=== PATIENT | male | born 1995 | race Caucasian/White ===

== ENCOUNTER 2020-09-07 11:49 | Outpatient (REF) | payer OTHER, SELFPAY | END 2020-09-07 11:50 | disposition home or self-care (01) | LOC: HO.LAB 11:49 | PROVIDERS: Visit Provider Internal Medicine | DX: Z20.828 Contact with and (suspected) exposure to other viral communicable diseases (principal) | CPT/HCPCS: C9803; U0003 ==

== ENCOUNTER 2022-05-10 11:17 | Outpatient (REF) | payer OTHER, SELFPAY ==
[2022-05-10 11:30] LABS: MANUAL DIFF FLAG NO
[2022-05-10 12:17] LABS: Basophils Percent Auto 0.4 % (0-2); Eosinophils Absolute Auto 0.2 X10*3/uL (0.0-0.4); Eosinophils Percent Auto 3.1 % (0-4); Hematocrit 44.3 % (42.0-52.0); Hemoglobin 15.3 g/dl (14.0-18.0); Imm Gran Abs Auto 0.04 X10*3/uL (0.00-0.03); Imm Gran Pct Auto 0.6 % (0.0-0.4); Lymphocytes Absolute Auto 1.9 X10*3/uL (1.2-4.9); Lymphocytes Percent Auto 26.9 % (20-40); Mean Corpuscular HGB Conc 34.5 g/dl (31.0-36.0); Mean Corpuscular Hemoglobin 29.7 pg (27.0-33.0); Mean Corpuscular Volume 85.9 fL (80.0-98.0); Mean Platelet Volume 11.2 fL (9.4-12.4); Monocytes Absolute Auto 0.4 X10*3/uL (0.1-1.2); Monocytes Percent Auto 5.8 % (2-11); Neutrophils Absolute Auto 4.3 x10*3/uL (2.0-8.3); Neutrophils Percent Auto 63.2 % (45-73); Platelet Count 175 X10*3/uL (160-400); Red Blood Count 5.16 X10*6/uL (4.60-5.80); Red Cell Distribution Width 12.1 % (11.0-16.0); White Blood Count 6.9 X10*3/uL (4.8-10.8)
[2022-05-10 12:44] LABS: Anion Gap 13 (12-20); Blood Urea Nitrogen 11 mg/dL (9-16); Calcium 10.2 mg/dL (8.4-10.2); Carbon Dioxide 29 mmol/L (22-29); Chloride 102 mmol/L (96-108); Estimated Glomerular Filt Rate > 60; Glucose Random 84 mg/dL (60-115); Sodium 139 mmol/L (135-145)
== END 2022-05-10 11:18 | disposition home or self-care (01) ==
LOC: HO.LAB 11:17
PROVIDERS: PCP Internal Medicine; Visit Provider Internal Medicine
DX: R51.9 Headache, unspecified (principal); Z13.0 Encounter for screening for diseases of the blood and blood-forming organs and certain disorders involving the immune mechanism
CPT/HCPCS: 36415; 80048; 85025

== ENCOUNTER 2023-10-29 05:29 | Emergency (ER) | payer MEDICAID, SELFPAY ==
--- NOTE | 2023-10-29 | ECG_ITS ---
Test Reason : dizziness Blood Pressure : / mmHG Vent. Rate : 082 BPM Atrial Rate : 082 BPM P-R Int : 134 ms QRS Dur : 088 ms QT Int : 374 ms P-R-T Axes : 032 021 020 degrees QTc Int : 436 ms Normal sinus rhythm Nonspecific T wave abnormality Abnormal ECG When compared with ECG of 03-DEC-2019 08:28, Nonspecific T wave abnormality now evident in Anterior leads Referred By: Generic ED Physician Electronically Signed By:MARLEN HENDERSON MD
[2023-10-29 05:33] VITALS: BP 152/70; PULSE 92; RESP 16; TEMP 36.6; O2SAT 97; BMI 27.4
[2023-10-29 06:03] LABS: Basophils Percent Auto 0.3 % (0-2); Eosinophils Absolute Auto 0.1 X10*3/uL (0.0-0.4); Eosinophils Percent Auto 1.4 % (0-4); Hematocrit 40.5 % (42.0-52.0); Hemoglobin 13.8 g/dl (14.0-18.0); Imm Gran Abs Auto 0.03 X10*3/uL (0.00-0.03); Imm Gran Pct Auto 0.5 % (0.0-0.4); Lymphocytes Percent Auto 31.3 % (20-40); MANUAL DIFF FLAG NO; Mean Corpuscular HGB Conc 34.1 g/dl (31.0-36.0); Mean Corpuscular Hemoglobin 29.4 pg (27.0-33.0); Mean Corpuscular Volume 86.2 fL (80.0-98.0); Mean Platelet Volume 10.4 fL (9.4-12.4); Monocytes Absolute Auto 0.4 X10*3/uL (0.1-1.2); Monocytes Percent Auto 6.2 % (2-11); Neutrophils Absolute Auto 3.8 x10*3/uL (2.0-8.3); Neutrophils Percent Auto 60.3 % (45-73); Platelet Count 175 X10*3/uL (160-400); Red Cell Distribution Width 12.5 % (11.0-16.0); White Blood Count 6.3 X10*3/uL (4.8-10.8)
[2023-10-29 06:17] LABS: Alanine Aminotransferase 99 U/L (0-40); Albumin Level 4.5 g/dL (3.5-5.0); Alkaline Phosphatase 85 U/L (39-117); Anion Gap 17 (12-20); Aspartate Amino Transferase 34 U/L (5-37); Bilirubin Total 0.4 mg/dL (0.0-1.0); Blood Urea Nitrogen 13 mg/dL (9-16); Calcium 9.5 mg/dL (8.4-10.2); Carbon Dioxide 25 mmol/L (22-29); Chloride 106 mmol/L (96-108); Creatinine Clr Calc Pharmacy 105.6; Estimated Glomerular Filt Rate > 60; Glucose Random 111 mg/dL (60-115); Potassium 3.9 mmol/L (3.3-5.1); Sodium 144 mmol/L (135-145); Total Protein 7.6 g/dL (6.5-8.0)
[2023-10-29 06:51] LABS: Appearance Urine Clear; Color Urine Yellow; Glucose Urine UA Negative (Negative); Leukocyte Esterase Urine Negative (Negative); Nitrite Urine Negative (Negative); Specific Gravity - Urine 1.025 (1.005-1.025); Urine Blood Negative (Negative); Urine Ketones Negative (Negative); Urine Protein Negative (Neg-Trace)
[2023-10-29 06:56] LABS: Bacteria Urine None Seen (None Seen); Hyaline Casts Urine 0-2 /LPF (0-2); RBC Urine 0-2 /HPF (0-2); Squamous Epithelial Cell Urine 0-2 /HPF (0-2); WBC Urine 0-5 /HPF (0-5)
--- NOTE | 2023-10-29 08:07 | ED.DIZZY ---
HPI - Dizziness General Chief Complaint: Dizziness Stated Complaint: Dizziness Time Seen by Provider: 10/29/23 07:58 Source: patient Mode of arrival: ambulatory Limitations: no limitations History of Present Illness HPI Narrative: Patient with a prior history of vertigo, now is dizzy again starting yesterday, worse with positional changes Pertinent past history: BPPV Onset (ago): day(s) Timing: sudden onset Severity: moderate Description: room spinning Related Data Previous Rx's Medication Instructions Recorded meclizine 25 mg tablet 25 mg PO TID PRN dizziness #30 tabs 10/29/23 Allergies Allergy/AdvReac Type Severity Reaction Status Date / Time No Known Allergies Allergy Verified 10/29/23 05:42 [No Known Allergies*] Review of Systems Review of Systems: Yes all other systems are reviewed and are negative Neurologic: Denies Sensory deficit (Neuro) COUNTS INCLUDE 234 BEDS AT THE [facility] Social History Social History Patient Tobacco Use Status: Never used Tobacco e-Cigarette/Vaping Use: Never Used Advance Directives: No Advance Directives Information Provided: No Current occupational status: employed Physical Exam Vital Signs: Vital Signs: Last Vital Signs Temp 97.9 F 10/29/23 05:33 Pulse 92 10/29/23 05:33 Resp 16 10/29/23 05:33 BP 152/70 H 10/29/23 05:33 Pulse Ox 97 10/29/23 05:33 O2 Del Method Room Air 10/29/23 05:33 BMI result Body Mass Index 27.4 Const: General: healthy appearing Nutritional Appearance: average body habitus Orientation/consciousness: oriented to person and patient oriented x3 Limitations: no limitations HEENT: Other: Nystagmus on right lateral gaze. Tms normal Head: Yes normal to inspection Ears: external ears normal and TM's normal bilaterally General nose exam: Normal external nose present Mouth: Normal oral and palatal mucosa present and oropharynx normal Throat: Yes posterior oropharynx normal Eyes: General: appearance normal, both eyes and all related structures Neck: Other: supple Neck: Yes normal visual inspection Chest: Chest palpation & inspection: normal inspection of the chest Resp: Auscultation: clear to auscultation bilaterally Cardio: Jugular venous distension: no JVD Rate: regular rate Rhythm: regular rhythm Heart sounds: S1 normal heart sound present and S2 normal heart sound present GI: Inspection: Yes normal to inspection Palpation (GI): Soft to palpation, nontender and No hepatosplenomegaly present Auscultation: normal bowel sounds : General: Yes no CVA tenderness Back/Spine/Pelvis: Back: no CVA tenderness Skin: General skin exam: no rashes or lesions noted Neuro: General: oriented to person and patient oriented x3 Cranial nerves: Yes CN's II-XII intact bilaterally Motor exam (neuro): 5/5 motor strength present throughout Sensory Exam: No Sensory deficit (Neuro) Extrem: General: Yes normal to inspection Psych: Appearance: grossly normal Course Reevaluation(s) Reevaluation #1: will treat patient with meclizine and dc home Time: 08:09 Medical Decision Making Differential Diagnosis Differential Diagnoses: The differential diagnosis associated with the presentation includes (vertigo, hypotension, hypertension, brain mass, otitis media) Admission/Observation Consideration of admission/observation: Escalation of care including admission/observation considered (upon arrival patient was considered for admission) Lab Data 10/29/23 05:58 10/29/23 05:58 Labs: Lab Results 10/29/23 10/29/23 Range/Units 05:58 06:35 WBC 6.3 (4.8-10.8) X10*3/uL RBC 4.70 (4.60-5.80) X10*6/uL Hgb 13.8 L (14.0-18.0) g/dl Hct 40.5 L (42.0-52.0) % MCV 86.2 (80.0-98.0) fL MCH 29.4 (27.0-33.0) pg MCHC 34.1 (31.0-36.0) g/dl RDW 12.5 (11.0-16.0) % Plt Count 175 (160-400) X10*3/uL MPV 10.4 (9.4-12.4) fL Immature Gran % (Auto) 0.5 H (0.0-0.4) % Neut % (Auto) 60.3 (45-73) % Lymph % (Auto) 31.3 (20-40) % [place] % (Auto) 6.2 (2-11) % Eos % (Auto) 1.4 (0-4) % Baso % (Auto) 0.3 (0-2) % Lymph # (Auto) 2.0 (1.2-4.9) X10*3/uL [place] # (Auto) 0.4 (0.1-1.2) X10*3/uL Eos # (Auto) 0.1 (0.0-0.4) X10*3/uL Baso # (Auto) 0.0 (0.0-0.2) X10*3/uL Abs Immat Gran (auto) 0.03 (0.00-0.03) X10*3/uL Absolute Neuts (auto) 3.8 (2.0-8.3) x10*3/uL Absolute Nucleated RBC 0.000 (0.0-0.012) X10*3/uL Nucleated RBC % (auto) 0.0 (0.0-0.2) /100WBC Sodium 144 (135-145) mmol/L Potassium 3.9 (3.3-5.1) mmol/L Chloride 106 (96-108) mmol/L Carbon Dioxide 25 (22-29) mmol/L Anion Gap 17 (12-20) BUN 13 (9-16) mg/dL Creatinine 1.00 (0.5-1.4) mg/dL Estim Creat Clear Calc 105.6 Estimated GFR > 60 Random Glucose 111 (60-115) mg/dL Calcium 9.5 D (8.4-10.2) mg/dL Total Bilirubin 0.4 (0.0-1.0) mg/dL AST 34 (5-37) U/L ALT 99 H (0-40) U/L Alkaline Phosphatase 85 (39-117) U/L Total Protein 7.6 (6.5-8.0) g/dL Albumin 4.5 (3.5-5.0) g/dL Urine Color Yellow Urine Appearance Clear Urine pH 6.0 (5.0-9.0) Ur Specific [place] 1.025 (1.005-1.025) Urine Protein Negative (Neg-Trace) mg/dL Urine Glucose (UA) Negative (Negative) mg/dL Urine Ketones Negative (Negative) mg/dL Urine Blood Negative (Negative) Urine Nitrite Negative (Negative) Ur Leukocyte Esterase Negative (Negative) Urine RBC 0-2 (0-2) /HPF Urine WBC 0-5 (0-5) /HPF Ur Squamous Epith Cells 0-2 (0-2) /HPF Urine Bacteria None Seen (None Seen) Hyaline Casts 0-2 (0-2) /LPF Independent Interpretation I performed an independent interpretation of an: EKG (sinus [address] or twave changes) Tests considered The following testing was considered but not selected: CT of brain considered, patient with prior history of vertigo Prescription Management I considered prescription management with: Antibiotic (no otitis media seen) Discharge Plan Discharge Clinical Impression: Dizziness, Benign paroxysmal positional vertigo Patient Disposition: Home, Self-Care Instructions: Benign Paroxysmal Positional Vertigo (ED) Prescriptions: New meclizine 25 mg tablet 25 mg PO TID PRN (Reason: dizziness) Qty: 30 0RF Referrals: Syed Smith [Physician] - 1 week Stand Alone Forms: Work/School Release
[2023-10-29] MEDS: Meclizine HCl 25 MG TABLET 50 MG PO (08:33)
[2023-10-29 08:50] VITALS: RESP 18
== END 2023-10-29 08:54 | disposition home or self-care (01) ==
PROVIDERS: Emergency Provider Emergency Medicine
DX: H81.10 Benign paroxysmal vertigo, unspecified ear (principal)
CPT/HCPCS: 36415; 80053; 81001; 85025; 93005; 99283; 99284

== ENCOUNTER → 2023-10-29 05:53 | Outpatient (BNV) | payer MEDICAID, SELFPAY | PROVIDERS: Emergency Provider Emergency Medicine; Visit Provider Internal Medicine Cardiovascular Disease | DX: R94.31 Abnormal electrocardiogram [ECG] [EKG] (principal) | CPT/HCPCS: 93010 ==

== ENCOUNTER 2023-11-05 08:29 | Emergency (ER) | payer OTHER, SELFPAY ==
[2023-11-05 08:44] VITALS: BP 142/80; PULSE 78; RESP 18; TEMP 35.9; O2SAT 97; BMI 27.4
--- NOTE | 2023-11-05 09:07 | PC.NURSE ---
This RN had an extensive conversation with patient in triage in regards to last hospital stay, current symptoms, and what the plan of care would be today, pt verbalized he did not want to wait to be seen, that his symptoms had not changed since last visit, he was going to call his PCP again to attempt to get a sooner appointment. Pt verbalized understanding of leaving without being seen today.
== END 2023-11-05 09:11 | disposition left against medical advice (07) ==
PROVIDERS: Emergency Provider Emergency Medicine
DX: R42 Dizziness and giddiness (principal)
CPT/HCPCS: 99281

== ENCOUNTER 2024-09-09 03:45 | Emergency (ER) | payer OTHER, SELFPAY ==
--- NOTE | 2024-09-09 | ECG_ITS ---
Test Reason : CHEST PAIN Blood Pressure : / mmHG Vent. Rate : 076 BPM Atrial Rate : 076 BPM P-R Int : 128 ms QRS Dur : 092 ms QT Int : 374 ms P-R-T Axes : 020 020 009 degrees QTc Int : 420 ms Normal sinus rhythm Normal ECG When compared with ECG of 29-OCT-2023 05:53, No significant change was found Referred By: Generic ED Physician Electronically Signed By:MARLEN HENDERSON MD
--- NOTE | ~2024-09-09 | CT_ITS ---
EXAMINATION: CT ABDOMEN AND PELVIS WITH CONTRAST CLINICAL INFORMATION: Abdominal pain. Vomiting. Elevated lipase. COMPARISON: CT dated March 23, 2020. TECHNIQUE: Multidetector volumetric images were obtained from the superior aspect of the liver through the pubic symphysis following administration 85 mL of Omnipaque 350 intravenous contrast. Sagittal and coronal reformatted images were obtained on the technologist's workstation. Oral contrast: No This CT examination was performed using dose optimization techniques as appropriate, variously including the following: *Automated exposure control *Adjustment of mA and/or kV according to patient size (this includes techniques or standardized protocols for targeted exams where dose is matched to indication/reason for exam; i.e. extremities or head) *Use of iterative reconstruction technique DLP: 595 mGy-cm FINDINGS: LUNG BASES: No acute airspace disease or gross pulmonary nodules in the included lung bases. LIVER, GALLBLADDER, AND BILIARY TREE: Liver measures 16 cm. No focal mass. Focal hypodensity adjacent to the falciform ligament likely focal fatty infiltration. Portal vein, hepatic veins and intrahepatic portion of the IVC are patent. No intrahepatic or extrahepatic biliary ductal dilatation. Fluid-filled contracted gallbladder without pericholecystic fluid collection or gallbladder wall thickening. PANCREAS: No focal pancreatic mass. No peripancreatic fluid collection. No main pancreatic ductal dilatation. SPLEEN: 12 cm. No focal mass. ADRENAL GLANDS: No nodular lesion. KIDNEYS AND URETERS: Normal enhancement pattern throughout the renal parenchyma without gross renal mass. Subcentimeter cyst right kidney. No hydronephrosis. BLADDER: Fluid-filled. GASTROINTESTINAL TRACT: Appendix is normal and retrocecal. Abundant stool large intestine. No intestinal obstruction pattern. No pneumatosis intestinalis. No pneumoperitoneum. No ascites. No peripheral enhancing fluid collection, peritoneal cavity. ABDOMINAL WALL: Small fat-containing umbilical hernia. LYMPH NODES: Nonspecific prominent mesenteric lymph nodes with associated mesenteric edema pattern. VASCULAR: No aneurysm or dissection, abdominal aorta. PELVIC VISCERA: Prostate gland and seminal vesicles are not enlarged. OSSEOUS STRUCTURES: No acute fracture or listhesis. No lytic or blastic lesions. CT/CT abdomen pelvis w IV con IMPRESSION: Splenomegaly. Nonspecific prominent mesenteric lymph nodes and edema pattern. Fleischner guidelines were followed. Electronically signed by: Nahum Murry MD 09/09/2024 09:52 AM EST
--- NOTE | ~2024-09-09 | XR_ITS ---
EXAMINATION: XR CHEST CLINICAL INFORMATION: sob COMPARISON: None available. TECHNIQUE: 2 views of the chest were obtained. FINDINGS: No consolidation, pleural effusion or pneumothorax. No hyperinflation. Cardiomediastinal silhouette is normal in size. S-shaped curvature of the thoracolumbar junction. XR/XR chest 2V IMPRESSION: No acute airspace disease. Probable scoliosis, thoracolumbar spine. Electronically signed by: Nahum Murry MD 09/09/2024 07:48 AM EST
[2024-09-09 03:48] VITALS: BP 122/72; PULSE 73; RESP 16; TEMP 36.8; O2SAT 97; BMI 29.0
[2024-09-09 04:44] LABS: MANUAL DIFF FLAG NO
[2024-09-09 04:45] LABS: Basophils Percent Auto 0.4 % (0-2); Eosinophils Absolute Auto 0.1 X10*3/uL (0.0-0.4); Eosinophils Percent Auto 2.1 % (0-4); Hematocrit 39.5 % (42.0-52.0); Hemoglobin 13.7 g/dl (14.0-18.0); Imm Gran Abs Auto 0.01 X10*3/uL (0.00-0.03); Imm Gran Pct Auto 0.2 % (0.0-0.4); Lymphocytes Absolute Auto 1.5 X10*3/uL (1.2-4.9); Lymphocytes Percent Auto 26.5 % (20-40); Mean Corpuscular HGB Conc 34.7 g/dl (31.0-36.0); Mean Corpuscular Hemoglobin 29.8 pg (27.0-33.0); Mean Corpuscular Volume 85.9 fL (80.0-98.0); Mean Platelet Volume 10.6 fL (9.4-12.4); Monocytes Absolute Auto 0.5 X10*3/uL (0.1-1.2); Monocytes Percent Auto 8.5 % (2-11); Neutrophils Absolute Auto 3.5 x10*3/uL (2.0-8.3); Neutrophils Percent Auto 62.3 % (45-73); Platelet Count 153 X10*3/uL (160-400); Red Cell Distribution Width 12.1 % (11.0-16.0); White Blood Count 5.7 X10*3/uL (4.8-10.8)
[2024-09-09 05:03] LABS: Alanine Aminotransferase 84 U/L (0-40); Albumin Level 4.3 g/dL (3.5-5.0); Alkaline Phosphatase 79 U/L (39-117); Amylase 121 U/L (28-100); Anion Gap 13 (12-20); Aspartate Amino Transferase 31 U/L (5-37); Bilirubin Direct 0.1 mg/dL (0.0-0.5); Bilirubin Total 0.4 mg/dL (0.0-1.0); Blood Urea Nitrogen 12 mg/dL (9-16); Carbon Dioxide 26 mmol/L (22-29); Chloride 105 mmol/L (96-108); Creatinine Clr Calc Pharmacy 111.8; Estimated Glomerular Filt Rate > 60; Glucose Random 105 mg/dL (60-115); Lipase 195 U/L (8-78); Potassium 4.1 mmol/L (3.3-5.1); Sodium 140 mmol/L (135-145); Total Protein 7.1 g/dL (6.5-8.0)
[2024-09-09 05:37] LABS: Influenza A PCR NEGATIVE (Negative); Influenza B PCR NEGATIVE (Negative); Resp Syncy Virus RNA Qual PCR NEGATIVE (Negative); SARS COV2 PCR INHOUSE NEGATIVE (Negative)
[2024-09-09 06:00] VITALS: BP 130/68; PULSE 79; RESP 12; TEMP 36.8; O2SAT 98
[2024-09-09 06:40] LABS: Troponin-I High Sensitivity < 2.7 ng/L (<3.5-35.0)
--- NOTE | 2024-09-09 07:16 | ED_ITS ---
HPI - Abdominal Pain General Chief Complaint: Abdominal Pain Stated Complaint: abd pain, diff breathing Time Seen by Provider: 09/09/24 06:52 Source: patient Mode of arrival: ambulatory Limitations: no limitations History of Present Illness ED Provider: Trisha Elizabeth. YON HPI narrative: 29 yo male with no significant medical history presents to the ER for evaluation of upper abdominal pain, bloating, nausea and SOB for the last 2 weeks. Pain is a constant 7/10. It is worse when he eats and he gets very bloated and SOB after eating. The pain is located across his entire upper abdomen. He has been having normal BMs. No vomiting. No fever or chills. He reports difficulty breathing when his abdomen gets bloated. He denies ETOH use. He is not on any medications. MD elicited complaint: abdominal pain Pertinent past history: none Onset (ago): week(s) (2) Pain Consistency: constant Location: epigastric Severity: moderate Pain scale (0-10): 7 Quality: stabbing and aching Radiation: LUQ and RUQ Migration to: no migration Exacerbating factors: eating Relieving factors: nothing Associated symptoms: nausea and other (sob) Related Data Previous Rx's ?Medication ?Instructions ?Recorded meclizine 25 mg tablet 25 mg PO TID PRN dizziness #30 tabs 10/29/23 Allergies Allergy/AdvReac Type Severity Reaction Status Date / Time No Known Allergies Allergy Verified 09/09/24 03:48 [No Known Allergies*] Review of Systems Review of Systems Yes all other systems are reviewed and are negative [facility] Social History Social History Patient Tobacco Use Status: Never used Tobacco e-Cigarette/Vaping Use: Never Used Current occupational status: employed Physical Exam ED Vital Signs: Vital Signs - 24 hr 09/09/24 03:48 09/09/24 06:00 09/09/24 07:23 Temperature 98.3 F 98.3 F Pulse Rate 73 79 Respiratory Rate 16 12 16 Blood Pressure 122/72 130/68 Pulse Oximetry 97 98 Oxygen Delivery Method Room Air Room Air 09/09/24 10:32 09/09/24 10:40 Temperature 97.8 F 97.8 F Pulse Rate 74 74 Respiratory Rate 18 18 Blood Pressure 116/53 L 116/53 L Pulse Oximetry 97 97 Oxygen Delivery Method Room Air Room Air BMI result Body Mass Index 29.0 Appearance: Alert. Oriented X3. No acute distress. Head: normocephalic, atraumatic. Eyes: Pupils equal, round and reactive to light. ENT: Pharynx normal. No tonsillar swelling or exudate. Neck: Normal inspection. Neck supple. CVS: Normal heart rate and rhythm. Pulses normal. Respiratory: No respiratory distress. Breath sounds normal. Abdomen: Soft with epigastric tenderness and guarding, no rebound, negative Villagomez's sign, normal active, +BS x4 Skin: Skin warm and dry. Normal skin color. Normal skin turgor. No rashes. Extremities: No lower extremity edema. No joint swelling. Neuro/psych: Oriented X 3. No motor deficit. No sensory deficit. CN II-XII intact. Normal speech and cognition. Medical Decision Making Medical Decision Making [facility] Narrative: 29 year old male presents to the ER for evaluation of 2-3 weeks of epigastric pain, bloating, nausea. Pain is worse with food. He is also short of breath when he gets abdominal bloating. Exam is revealing for moderate epigastric tenderness with some guarding but no rebound. No palpable masses. Negative Villagomez sign. Vital signs are stable. Patient is reporting 7/10 pain, he was treated with IV morphine and Zofran with improvement. Lab workup is revealing for mild elevation of both lipase and amylase. CT scan was performed which does not show any abnormalities in the pancreas. He does have some nonspecific mesenteric adenopathy. Patient does not meet criteria for acute pancreatitis as his enzymes are not 3x greater than normal, he has normal-appearing pancreas on CT scan. Pancreatic enzymes may be down trending as his pain is now 2-3 weeks in. Advised patient to stick to a clear liquid diet for the next 48 hours and slowly advanced. Encouraged outpatient follow-up with his PCP as well as GI. Strict return precautions were discussed Differential Diagnosis Differential Diagnoses: The differential diagnosis associated with the presentation includes pancreatitis, acute cholecystitis, biliary colic, GERD, gastritis, gastroenteritis Admission/Observation Consideration of admission/observation: Escalation of care including admission/observation considered Lab Data [facility] Lab Attestation statement: I reviewed the patient's lab results. Mild anemia, mild thrombocytopenia, normal LFTs, mildly elevated amylase and lipase 09/09/24 04:39 09/09/24 04:39 Labs: Lab Results 09/09/24 09/09/24 Range/Units 04:39 04:57 WBC 5.7 (4.8-10.8) X10*3/uL RBC 4.60 (4.60-5.80) X10*6/uL Hgb 13.7 L (14.0-18.0) g/dl Hct 39.5 L (42.0-52.0) % MCV 85.9 (80.0-98.0) fL MCH 29.8 (27.0-33.0) pg MCHC 34.7 (31.0-36.0) g/dl RDW 12.1 (11.0-16.0) % Plt Count 153 L (160-400) X10*3/uL MPV 10.6 (9.4-12.4) fL Immature Gran % (Auto) 0.2 (0.0-0.4) % Neut % (Auto) 62.3 (45-73) % Lymph % (Auto) 26.5 (20-40) % [place] % (Auto) 8.5 (2-11) % Eos % (Auto) 2.1 (0-4) % Baso % (Auto) 0.4 (0-2) % Lymph # (Auto) 1.5 (1.2-4.9) X10*3/uL [place] # (Auto) 0.5 (0.1-1.2) X10*3/uL Eos # (Auto) 0.1 (0.0-0.4) X10*3/uL Baso # (Auto) 0.0 (0.0-0.2) X10*3/uL Abs Immat Gran (auto) 0.01 (0.00-0.03) X10*3/uL Absolute Neuts (auto) 3.5 (2.0-8.3) x10*3/uL Absolute Nucleated RBC 0.000 (0.0-0.012) X10*3/uL Nucleated RBC % (auto) 0.0 (0.0-0.2) /100WBC Sodium 140 (135-145) mmol/L Potassium 4.1 (3.3-5.1) mmol/L Chloride 105 (96-108) mmol/L Carbon Dioxide 26 (22-29) mmol/L Anion Gap 13 (12-20) BUN 12 (9-16) mg/dL Creatinine 0.96 (0.5-1.4) mg/dL Estim Creat Clear Calc 111.8 Estimated GFR > 60 Random Glucose 105 (60-115) mg/dL Calcium 10.0 (8.4-10.2) mg/dL Total Bilirubin 0.4 (0.0-1.0) mg/dL Direct Bilirubin 0.1 (0.0-0.5) mg/dL AST 31 (5-37) U/L ALT 84 H (0-40) U/L Alkaline Phosphatase 79 (39-117) U/L Troponin I High Sens < 2.7 (<3.5-35.0) ng/L Total Protein 7.1 (6.5-8.0) g/dL Albumin 4.3 (3.5-5.0) g/dL Amylase 121 H (28-100) U/L Lipase 195 H (8-78) U/L Influenza Type A (PCR) NEGATIVE (Negative) Influenza Type B (PCR) NEGATIVE (Negative) RSV RNA Qual (PCR) NEGATIVE (Negative) SARS-CoV-2 RNA (RT-PCR) NEGATIVE (Negative) Independent Interpretation I performed an independent interpretation of an: EKG, Plain X-Ray and CT Scan Interpretation: ekg with normal sinus rhythm, HR 76 bpm, normal IN interval, normal QTC, no ST segment elevation or depression CXR clear without focal infiltrate or effusion CT abd with abnormal appearing pancreas, no masses. Radiology Impression Discussion of test interpretation with radiology: I have reviewed the radiologist's reading. Radiologist Impression: XR/XR chest 2V IMPRESSION: No acute airspace disease. Probable scoliosis, thoracolumbar spine. External Record Review External record reviewed: Outpatient record Prescription Management I considered prescription management with: Pain Medication and Antibiotic Medications Administered Discontinued Medications Generic Name Dose Route Start Last Admin Trade Name Freq PRN Reason Stop Dose Admin Lactated Ringer's 1,000 mls @ 999 mls/hr 09/09/24 07:30 09/09/24 08:26 Lr IV 09/09/24 08:30 Infused .Q1H1M CANDIDO Infusion Iohexol 85 ml 09/09/24 09:07 09/09/24 09:08 Iohexol 350 Mg/Ml 100 Ml Infus..Btl IV 09/09/24 09:08 85 ml ONCE ONE Administration Morphine Sulfate 4 mg 09/09/24 07:13 09/09/24 07:23 Morphine Sulfate 4 Mg/Ml Cartridge IVPUSH 09/09/24 07:14 4 mg ONCE ONE Administration Protocol Ondansetron HCl 4 mg 09/09/24 07:13 09/09/24 07:23 Ondansetron Hcl 4 Mg/2 Ml Vial IVPUSH 09/09/24 07:14 4 mg ONCE ONE Administration Critical Care Time Critical Care Time Critical Care Time: No Discharge Plan Discharge Clinical Impression: Elevated lipase Abdominal pain Qualifiers: Abdominal location: epigastric Qualified Code(s): R10.13 - Epigastric pain Patient Disposition: Home, Self-Care Instructions: Abdominal Pain (ED) Additional Instructions: You had some mild elevation of your pancreas enzymes. Your CT scan showed a normal appearing pancreas. Your chest x-ray, EKG and other lab workup today were reassuring. Recommend liquid diet for the next 48 hours. Slowly advance diet as tolerated. Follow up with your PCP and GI If you develop new or worsening symptoms call 911 or come back to the ER for further evaluation. Prescriptions: No Action meclizine 25 mg tablet 25 mg PO TID PRN (Reason: dizziness) Qty: 30 0RF Referrals: [facility] [Provider Group] Interventions: ED Discharge Assessment Last Done: 09/09/24 10:40 Discharge Date/Time: 09/09/24 10:41 Print Language: Mauritanian
[2024-09-09 07:23] VITALS: RESP 16
[2024-09-09] MEDS: Morphine Sulfate 4 MG/ML CARTRIDGE IVPUSH (07:23)
[2024-09-09] MEDS: ondansetron HCL 4 MG/2 ML VIAL IVPUSH (07:23)
[2024-09-09] MEDS: Lactated Ringers 1,000 ML 999 ML IV (07:25)
--- NOTE | 2024-09-09 07:28 | PC.NURSE ---
Care of Pt assumed at change of shift. A&Ox3, VSS, afebrile. Skin is warm and dry Breaths and speech are slow, even, and unlabored. NAD noted at this time. 20g to LAC Pt medicated per DEC. Awaiting imaging.
[2024-09-09] MEDS: iohexoL 350 MG/ML 100 ML INFUS..BTL 85 ML IV (09:08)
[2024-09-09 10:32] VITALS: BP 116/53; PULSE 74; RESP 18; TEMP 36.6; O2SAT 97
[2024-09-09 10:40] VITALS: BP 116/53; PULSE 74; RESP 18; TEMP 36.6; O2SAT 97
== END 2024-09-09 10:41 | disposition home or self-care (01) ==
PROVIDERS: Emergency Provider Emergency Medicine
DX: R10.2 Pelvic and perineal pain (principal); R06.02 Shortness of breath; R10.12 Left upper quadrant pain; R10.11 Right upper quadrant pain; R11.0 Nausea; R79.89 Other specified abnormal findings of blood chemistry; Z03.818 Encounter for observation for suspected exposure to other biological agents ruled out; Z79.899 Other long term (current) drug therapy
CPT/HCPCS: 0241U; 36415; 71046; 74177; 80053; 82150; 82248; 83690; 84484; 85025; 93005; 96361; 96374; 96375; 99284; 99285; J2270; J2405; J7120; Q9967

== ENCOUNTER → 2024-09-09 04:20 | Outpatient (BNV) | payer OTHER, SELFPAY | PROVIDERS: Emergency Provider Emergency Medicine; Visit Provider Internal Medicine Cardiovascular Disease | DX: R07.9 Chest pain, unspecified (principal) | CPT/HCPCS: 93010 ==

== ENCOUNTER → 2024-09-09 06:53 | Outpatient (BNV) | payer OTHER, SELFPAY | PROVIDERS: Emergency Provider Emergency Medicine; Visit Provider Radiology Diagnostic Radiology | DX: R06.02 Shortness of breath (principal); R16.1 Splenomegaly, not elsewhere classified | CPT/HCPCS: 71046; 74177 ==

== ENCOUNTER 2025-03-17 00:24 | Emergency (ER) | payer OTHER, SELFPAY ==
--- NOTE | 2025-03-17 00:26 | ECG_ITS ---
Test Reason : CHEST TIGHTNESS Blood Pressure : */* mmHG Vent. Rate : 75 BPM Atrial Rate : 75 BPM P-R Int : 130 ms QRS Dur : 92 ms QT Int : 388 ms P-R-T Axes : 24 18 18 degrees QTcB Int : 433 ms Normal sinus rhythm Normal ECG When compared with ECG of 09-Sep-2024 04:20, No significant change was found Referred By: Generic ED Physician Electronically Signed By: MARLEN HENDERSON MD
[2025-03-17 00:35] VITALS: BP 131/81; PULSE 80; RESP 18; TEMP 37; O2SAT 97; BMI 29.0
[2025-03-17 00:48] LABS: MANUAL DIFF FLAG NO
[2025-03-17 00:49] LABS: Basophils Percent Auto 0.4 % (0-2); Eosinophils Absolute Auto 0.2 X10*3/uL (0.0-0.4); Hematocrit 40.7 % (42.0-52.0); Hemoglobin 14.3 g/dl (14.0-18.0); Imm Gran Abs Auto 0.01 X10*3/uL (0.00-0.03); Imm Gran Pct Auto 0.1 % (0.0-0.4); Lymphocytes Absolute Auto 2.3 X10*3/uL (1.2-4.9); Mean Corpuscular HGB Conc 35.1 g/dl (31.0-36.0); Mean Corpuscular Volume 85.5 fL (80.0-98.0); Mean Platelet Volume 10.8 fL (9.4-12.4); Monocytes Absolute Auto 0.4 X10*3/uL (0.1-1.2); Monocytes Percent Auto 5.6 % (2-11); Neutrophils Absolute Auto 4.3 x10*3/uL (2.0-8.3); Neutrophils Percent Auto 58.9 % (45-73); Platelet Count 182 X10*3/uL (160-400); Red Blood Count 4.76 X10*6/uL (4.60-5.80); Red Cell Distribution Width 12.4 % (11.0-16.0); White Blood Count 7.3 X10*3/uL (4.8-10.8)
[2025-03-17 01:07] LABS: Alanine Aminotransferase 43 U/L (0-40); Albumin Level 4.9 g/dL (3.5-5.0); Alkaline Phosphatase 83 U/L (39-117); Anion Gap 12 (12-20); Aspartate Amino Transferase 25 U/L (5-37); Bilirubin Total 0.5 mg/dL (0.0-1.0); Blood Urea Nitrogen 20 mg/dL (9-16); Carbon Dioxide 28 mmol/L (22-29); Chloride 105 mmol/L (96-108); Estimated Glomerular Filt Rate > 60; Glucose Random 97 mg/dL (60-115); Potassium 4.3 mmol/L (3.3-5.1); Sodium 141 mmol/L (135-145); Total Protein 7.7 g/dL (6.5-8.0); Troponin-I High Sensitivity < 2.7 ng/L (<3.5-35.0)
[2025-03-17 01:43] LABS: Magnesium 1.8 mg/dL (1.6-2.6)
--- NOTE | 2025-03-17 01:44 | ED_ITS ---
HPI - Chest Pain General Chief Complaint: Chest Pain Stated Complaint: tightness in chest Time Seen by Provider: 03/17/25 01:08 Source: patient Mode of arrival: ambulatory Limitations: no limitations History of Present Illness ED Provider: Dr. Karime Matos HPI narrative: Patient comes to the emergency room complaining of ?feeling weird?. Patient states that his legs having cramping for the last week intermittently. At this time patient has no pain or cramps. Patient states that earlier today he had chest tightness but did already resolved. Related Data Previous Rx's ?Medication ?Instructions ?Recorded meclizine 25 mg tablet 25 mg PO TID PRN dizziness #30 tabs 10/29/23 magnesium oxide 400 mg PO DAILY #30 caps 03/17/25 Allergies Allergy/AdvReac Type Severity Reaction Status Date / Time escitalopram Allergy Unknown anger Verified 03/17/25 00:39 Review of Systems 2 Review of Systems: Constitutional : No Weight loss, No Fever, No Chills, No Night Sweats, No Fatigue, No Malaise ENT/Mouth : No Hearing loss, No Ear Pain, No Nasal Congestion, No Sinus Pain, No Hoarseness, No sore throat, No Rhinorrhea, No Swallowing Difficulty Eyes: No Eye Pain, No Swelling, No Redness, No Foreign Body, No Discharge, No Vision Changes Cardiovascular : Complaining of chest tightness which resolved, denies any Chest Pain, No SOB, No Dyspnea on Exertion, No Orthopnea, No Edema, No Palpitations Respiratory : No Cough, No Sputum, No Wheezing, No Smoke Exposure, No Dyspnea Gastrointestinal : No Nausea, No Vomiting, No Diarrhea, No Constipation, No abdominal Pain, No Hematochezia, No Melena Genitourinary : no irregular bleeding, No Dysuria, No Urinary Frequency, No Hematuria, No Urinary Incontinence, No Urgency, No Flank Pain, No Urinary Flow Changes, No Hesitancy Musculoskeletal : Complaining of leg cramping. No joint pain, No Myalgias, No Joint Swelling Skin : No Skin Lesions, No rash Neuro : No Weakness, No Numbness, No Paresthesias, No Loss of Consciousness, No Dizziness, No Headache Psych : No Anxiety/Panic, No Depression, No SI/HI/AH/VH, No Social Issues, Heme/Lymph: No Bruising, No Bleeding,No Lymphadenopathy Endocrine : No Polyuria, No Polydipsia, No Temperature Intolerance [facility] Social History Social History (System 12/28/24 @ 12:56 by Alejandra Garcia) Alcohol intake: current Alcohol intake frequency: holidays/special occasions only Patient Tobacco Use Status: Never used Tobacco Smoked in Last 30 Days: No e-Cigarette/Vaping Use: Never Used Use of substances other than those prescribed or required for medical reasons: No Advance Directives: No Advance Directives Information Provided: Yes Current occupational status: employed Physical Exam 2 Vital Signs: Vital Signs: Last Vital Signs Temp 98.6 F 03/17/25 00:35 Pulse 80 03/17/25 00:35 Resp 18 03/17/25 00:35 BP 131/81 03/17/25 00:35 Pulse Ox 97 03/17/25 00:35 O2 Del Method Room Air 03/17/25 00:35 BMI result Body Mass Index 29.0 Const: Other: Appearance: Alert. Oriented X3. No acute distress. Eyes: Pupils equal, round and reactive to light. ENT: Pharynx normal. Neck: Normal inspection. Neck supple. No lymph nodes noted. No crepitus CVS: Normal heart rate and rhythm. Pulses normal. Normal S1 and S2 Respiratory: No respiratory distress. Breath sounds normal. No Wheezing. No rales Abdomen: Soft and nontender. No rigidity. No distention. Skin: Skin warm and dry. Normal skin color. Normal skin turgor. Extremities: No lower extremity edema. No Lacerations. No Rash Neuro: Oriented X 3. No motor deficit. No sensory deficit. Moving all extremities. No slurred speech. CN 2 through 12 grossly intact Psych: calm, cooperative, normal affect Medical Decision Making Medical Decision Making [facility] Narrative: My interpretation of EKG: Normal sinus rhythm, heart rate 75, no ST segment depression or elevation, no T-wave inversion, QTC 433 My interpretation of labs: No significant abnormality in patient's hematology and chemistry, magnesium 1.8, LFTs within normal limits Differential Diagnosis Differential Diagnoses: The differential diagnosis associated with the presentation includes (Viral syndrome, electrolyte abnormality , anxiety) Lab Data [facility] Lab Attestation statement: I reviewed the patient's lab results. 03/17/25 00:43 03/17/25 00:43 Labs: Lab Results 03/17/25 Range/Units 00:43 WBC 7.3 (4.8-10.8) X10*3/uL RBC 4.76 (4.60-5.80) X10*6/uL Hgb 14.3 (14.0-18.0) g/dl Hct 40.7 L (42.0-52.0) % MCV 85.5 (80.0-98.0) fL MCH 30.0 (27.0-33.0) pg MCHC 35.1 (31.0-36.0) g/dl RDW 12.4 (11.0-16.0) % Plt Count 182 (160-400) X10*3/uL MPV 10.8 (9.4-12.4) fL Immature Gran % (Auto) 0.1 (0.0-0.4) % Neut % (Auto) 58.9 (45-73) % Lymph % (Auto) 32.0 (20-40) % Jerauld % (Auto) 5.6 (2-11) % Eos % (Auto) 3.0 (0-4) % Baso % (Auto) 0.4 (0-2) % Lymph # (Auto) 2.3 (1.2-4.9) X10*3/uL Jerauld # (Auto) 0.4 (0.1-1.2) X10*3/uL Eos # (Auto) 0.2 (0.0-0.4) X10*3/uL Baso # (Auto) 0.0 (0.0-0.2) X10*3/uL Abs Immat Gran (auto) 0.01 (0.00-0.03) X10*3/uL Absolute Neuts (auto) 4.3 (2.0-8.3) x10*3/uL Absolute Nucleated RBC 0.000 (0.0-0.012) X10*3/uL Nucleated RBC % (auto) 0.0 (0.0-0.2) /100WBC Sodium 141 (135-145) mmol/L Potassium 4.3 (3.3-5.1) mmol/L Chloride 105 (96-108) mmol/L Carbon Dioxide 28 (22-29) mmol/L Anion Gap 12 (12-20) BUN 20 H (9-16) mg/dL Creatinine 0.91 (0.5-1.4) mg/dL Estim Creat Clear Calc 118.0 Estimated GFR > 60 Random Glucose 97 (60-115) mg/dL Calcium 10.0 (8.4-10.2) mg/dL Magnesium 1.8 (1.6-2.6) mg/dL Total Bilirubin 0.5 (0.0-1.0) mg/dL AST 25 (5-37) U/L ALT 43 H (0-40) U/L Alkaline Phosphatase 83 (39-117) U/L Troponin I High Sens < 2.7 (<3.5-35.0) ng/L Total Protein 7.7 (6.5-8.0) g/dL Albumin 4.9 (3.5-5.0) g/dL Discharge Plan Discharge Clinical Impression: Leg cramping Patient Disposition: Home, Self-Care Instructions: Leg Cramps (ED) Additional Instructions: Please follow-up with your primary care physician tomorrow. If you have any worsening or new symptoms, please return to the emergency room or call 911 Prescriptions: New magnesium oxide 400 mg magnesium capsule 400 mg PO DAILY Qty: 30 0RF No Action meclizine 25 mg tablet 25 mg PO TID PRN (Reason: dizziness) Qty: 30 0RF Print Language: [place] Islander
[2025-03-17 02:12] VITALS: BP 113/70; PULSE 70; RESP 15; TEMP 36.3; O2SAT 98
[2025-03-17 02:28] VITALS: BP 113/70; PULSE 70; RESP 15; TEMP 36.3; O2SAT 98
== END 2025-03-17 02:29 | disposition home or self-care (01) ==
PROVIDERS: Emergency Provider Emergency Medicine
DX: R07.89 Other chest pain (principal); R25.2 Cramp and spasm
CPT/HCPCS: 36415; 80053; 83735; 84484; 85025; 93005; 99283; 99284

== ENCOUNTER → 2025-03-17 00:26 | Outpatient (BNV) | payer OTHER, SELFPAY | PROVIDERS: Emergency Provider Emergency Medicine; Visit Provider Internal Medicine Cardiovascular Disease | DX: R07.89 Other chest pain (principal) | CPT/HCPCS: 93010 ==

== ENCOUNTER 2025-05-15 12:16 | Emergency (ER) | payer OTHER, SELFPAY ==
--- NOTE | ~2025-05-15 | XR_ITS ---
CLINICAL HISTORY: ?avulsion fx from achilles Radiographs of the right ankle, 3 views Comparison: None available Findings: There is no fracture or dislocation. The ankle mortise is congruent. The joint spaces are preserved without osteophytosis. Bone mineralization is normal. Soft tissue swelling. Impression: No fracture. This document has been electronically signed by: Vikki Silverio MD on 05/15/2025 13:36:21
[2025-05-15 12:19] VITALS: BP 114/69; PULSE 90; RESP 16; TEMP 36; O2SAT 98; BMI 29.0
--- NOTE | 2025-05-15 12:42 | ED.LOWEXIN ---
HPI - Extremity Injury (Lower) General Chief Complaint: Extremity Injury, Lower Stated Complaint: Left foot injury Time Seen by Provider: 05/15/25 12:25 Source: patient Mode of arrival: wheelchair Limitations: no limitations History of Present Illness ED Provider: Dian Thomas NP HPI Narrative: Patient is a 30 year old male who presents emergency department for evaluation. He reports that today while he was playing basketball he went to catch a foul ball, states that he suddenly jerked to the side and ?funny? and subsequently fell on popping sensation at the base of his left calf towards his ankle and severe pain. Has been unable to put any weight on the leg since this happened. Denies calf pain specifically. He will pain in the knee or the ankle. Denies numbness tingling or cold sensation to the extremity. Denies history of prior injury Related Data Previous Rx's ?Medication ?Instructions ?Recorded meclizine 25 mg tablet 25 mg PO TID PRN dizziness #30 tabs 10/29/23 magnesium oxide 400 mg PO DAILY #30 caps 03/17/25 Allergies Allergy/AdvReac Type Severity Reaction Status Date / Time escitalopram Allergy Unknown anger Verified 05/15/25 12:20 Review of Systems Review of Systems: Yes all other systems are reviewed and are negative PMFSH Past Medical History Attestation statement: The following information was validated with the patient. Source: old records reviewed Social History Social History (System 12/28/24 @ 12:56 by Alejandra Garcia) Alcohol intake: current Alcohol intake frequency: holidays/special occasions only Patient Tobacco Use Status: Never used Tobacco e-Cigarette/Vaping Use: Never Used Current occupational status: employed Physical Exam Vital Signs: Vital Signs: Last Vital Signs Temp 96.8 F 05/15/25 14:51 Pulse 90 05/15/25 14:51 Resp 16 05/15/25 14:51 BP 114/69 05/15/25 14:51 Pulse Ox 98 05/15/25 14:51 O2 Del Method Room Air 05/15/25 14:51 BMI result Body Mass Index 29.0 Appearance: Alert.?Oriented to person, place and time. No acute distress.?Normal affect.? CVS: Heart sounds normal. Normal heart rate and rhythm.? Pulses normal.?? Respiratory: No respiratory distress.? Lung sounds clear to auscultation bilaterally??? Skin: Skin warm and dry.? Normal skin color.? Extremities: No lower extremity edema.? No calf ttp. Sarkar test with minimal plantar flexion of the foot upon squeezing. 2+ DP/PT pulse. Neuro: Moves all extremities spontaneously. Sensation intact bilaterally. Ambulates with antalgic gait hopping on the right foot, nonweightbearing to the left due to pain Medical Decision Making Medical Decision Making MDM Narrative: Patient is a 30-year-old male who presents emergency department for evaluation of left lower extremity pain after sudden movement and popping sensation while playing basketball today as per HPI, Sarkar squeeze test with minimal plantar flexion of the foot concerning for partial tendon rupture, complete tendon rupture, alternative the Achilles tendinopathy based on history and physical examination. There is no obvious deformity to the ankle to suggest acute fracture dislocation never obtain XR imaging to assess for potential avulsion injury. Extremities neurovascularly intact distally. Compartments are soft not consistent with compartment syndrome. No history of VTE/malignancy, low suspicion for DVT. Reviewed with my attending Dr. Eaton, perform bed side ultrasound assessment of Achilles tendon Differential Diagnosis Differential Diagnoses: The differential diagnosis associated with the presentation includes (See narrative above) Admission/Observation Consideration of admission/observation: Escalation of care including admission/observation considered Consult Healthcare Provider Management of the patient was discussed with: Visual Merchandising Specialist Consulted with Orthopedics; Evan YUN expressed my concern for partial Achilles tendon rupture versus tendinopathy, inquired as to whether he should be placed in a posterior splint with partial plantar flexion versus orthopedic walking boot and crutches; - advises either is acceptable based on pain, at rest he is not in significant pain only with weight-bearing. He will be placed in a tall orthopedic boot crutches and outpatient follow-up Independent Interpretation I performed an independent interpretation of an: Plain X-Ray (Left ankle without acute fracture or dislocation, no obvious avulsion) Radiology Impression Discussion of test interpretation with radiology: I have reviewed the radiologist's reading. Radiologist Impression: Radiographs of the right ankle, 3 views Comparison: None available Findings: There is no fracture or dislocation. The ankle mortise is congruent. The joint spaces are preserved without osteophytosis. Bone mineralization is normal. Soft tissue swelling. Impression: No fracture. External Record Review External record reviewed: Outpatient record Tests considered The following testing was considered but not selected: See narrative above Prescription Management I considered prescription management with: Pain Medication Procedures Procedure Narrative Procedure Narrative: EMERGENCY ULTRASOUND INTERPRETATION- Limited Musculoskeletal? The study reveals: Impression: fluid around achilles Indication:?? L achilles tear Tendon:??L achilles tendon fluid surrounding the tendon on both aspects, ttp along distal insertion, thickened hyperechoic areas on distal portion Performed by: GEOVANNA Date: 05/15/25 Time: 114pm CPT: Reference Codes? [email or web address]://bit.ly/[email or web address] Discharge Plan Discharge Clinical Impression: Achilles tendinitis Qualifiers: Laterality: left Qualified Code(s): M76.62 - Achilles tendinitis, left leg Patient Disposition: Home, Self-Care Instructions: Achilles Tendinitis (ED) Additional Instructions: As discussed, based on history physical examination today there was concern for potential partial rupture/tear to your Achilles tendon. This was reviewed with Orthopedics today. You are being placed in an orthopedic boot, this should be in place at all times when out of bed. Use crutches to avoid weight-bearing on the leg. Contact the orthopedic office tomorrow morning to arrange for outpatient follow-up. Apply ice to area of pain for 10 15 minutes 4-6 times daily over the next few days. You can take ibuprofen 200 mg, 3 tablets (600mg) every 6-8 hours as needed for pain, in addition to Tylenol 500 mg, 2 tablets (1,000mg) every 4-6 hours as needed for pain, but not to exceed 3 doses daily (3,000mg).? Return to emergency department any new or worsening symptoms or concerns. Prescriptions: No Action meclizine 25 mg tablet 25 mg PO TID PRN (Reason: dizziness) Qty: 30 0RF magnesium oxide 400 mg magnesium capsule 400 mg PO DAILY Qty: 30 0RF Referrals: Keisha Carolina PA-C [Physician Flyer Repairer, Orthopedics] Referral Note: ? partial Achilles tear Clinical Impression: Achilles tendinitis Stand Alone Forms: Work/School Release Interventions: ED Discharge Assessment Last Done: 05/15/25 14:51 Discharge Date/Time: 05/15/25 14:52 Print Language: Tajik
[2025-05-15 14:51] VITALS: BP 114/69; PULSE 90; RESP 16; TEMP 36; O2SAT 98
== END 2025-05-15 14:52 | disposition home or self-care (01) ==
PROVIDERS: Emergency Provider Emergency Medicine
DX: M76.62 Achilles tendinitis, left leg (principal); M25.572 Pain in left ankle and joints of left foot
CPT/HCPCS: 73610; 76882; 99284

== ENCOUNTER → 2025-05-15 13:14 | Outpatient (BNV) | payer OTHER, SELFPAY | PROVIDERS: Emergency Provider Emergency Medicine; Visit Provider Radiology Diagnostic Radiology | DX: R22.42 Localized swelling, mass and lump, left lower limb (principal) | CPT/HCPCS: 73610 ==

== ENCOUNTER 2025-05-16 11:10 | Outpatient (AMB) | payer OTHER, SELFPAY ==
--- NOTE | 2025-05-16 11:15 | MHC.OFFVIS ---
Vital Signs 05/16/25 11:21 Height 5 ft 6 in Weight 180 lb BMI 29.0 Intake Visit Reasons: ED f/u LT achilles injury-DOI? Intake Note: Raphael is a 30 year old male who presents today as a new patient for an ER follow up of left achilles injury, DOI 05/15/25. Patient reports that he was playing basketball when he attempted to save a ball from going out of bounds and felt a tight sensation as well as a snap in his ankle. He presented to [facility] ER that same day where x-rays were obtained, he was placed in a tall walking boot and crutches were given. Patient reports pain in his calf that travels down to his heel. No numbness or tingling. Allergies escitalopram Adverse Reaction (Unknown, Verified 05/16/25 11:16) anger Medication List - Last Reconciled 05/16/25 by Shahid Montoya PA-C No Known Home Meds HPI HPI ED f/u LT achilles injury-DOI?: Details: 30 yo male presents to the office today for an injury he sustained to the left ankle on 05/15/25. He states he was playing basketball when he stepped and felt a pop in his Achilles tendon region. He states he sat on the bleachers to rest and then was seen in the emergency department for evaluation. Exam in the emergency department was suggestive for a partial tear of the Achilles tendon. He was placed in a boot and given crutches and referred to our office for ortho eval. [facility] Social History (Updated 05/16/25 @ 11:16 by NEGRA Sauer) Alcohol intake: current Alcohol intake frequency: holidays/special occasions only Patient Tobacco Use Status: Never used Tobacco e-Cigarette/Vaping Use: Never Used Current occupational status: employed Current occupation: [employer] Review of Systems Const All systems reviewed & are unremarkable except as noted in HPI and below Physical Exam Vital Signs: BMI result Body Mass Index 29.0 Const General: cooperative and no acute distress Orientation/consciousness: patient oriented x3 Resp Effort & Inspection: normal respiratory effort and able to speak in complete sentences Cardio Peripheral pulses: Peripheral pulses 2+ throughout Neuro General: patient oriented x3 Extrem Other: Left achilles tendon without deformity. There is TTP along the tendon into the calf. Negative thompsons. NVI Assessment & Plan Assessment & Plan (1) Strain of left Achilles tendon: Code(s): S86.012A - Strain of left Achilles tendon, initial encounter Category: Medical Plan: I explained to the patient the tendon appears to be intact despite the discomfort he is experiencing. He will continue to wear the boot he was given in the emergency department. I did give him some wedges in the office to help take some of the strain off of the tendon. He will remove 1 wedge per week. He can weightbear as tolerated however if this is too painful he can begin 25-50% and increase weekly. I did place an order for physical therapy to work on range of motion, heel cord stretching and progress to strength and proprioceptive training. He will see me back in 6 weeks for evaluation and he will remain out of work until then. Orders: Orders PT Evaluation and Treatment Today S86.012A - Strain of left Achilles tendon, initial encounter Coding Level of Care Code New Pt Level 3 (22535) Complex EM visit Add On G2211 Diagnoses Strain of left Achilles tendon S86.012A
[2025-05-16 11:21] VITALS: BMI 29.0
--- OUTSIDE RECORDS SUMMARY | 2025-05-16 12:29 | XMS_ITS | Clinical Summary ---
Author Organization [facility] [address] [place] [address] [place] [address] Phone Care Team Providers Care Typing Checker Name Role Phone Annabelle Linares MD Primary Care Provider [phone] Allergies No known active allergies Medications No known medications Immunizations Name Administration Dates Next Due DTP 04/18/1997, 4,1993,08/10,1993 Hepatitis B Pediatric (Enger ix B; Recombivax HB) to less than 20 yo 11/24/1996,02/10/1996,11/06/1995 HiB PRP-T conjugate (Acthib, Hiberix) 6wks and older 07/22/1994,1993,1993,06/08 Influenza trivalent, with pr eservative (Fluzone; Afluria) 6mo and older 06/28/2009 MMR, measles mumps and rubel la Live (Priorix; M-M-R II) 12mo and older 04/18/1997,06/19/1994 Meningococcal MCV4P 05/26/2008 OPV 04/18/1997, 4,1993,06/08 Td Tetanus diptheria (Tdvax) 7yo and older 06/06/2004 Tdap Tetanus diptheria acell ular pertussis (Boostrix; Adacel) 7yo and older 05/26/2008 Varicella live (Varivax) 12m o and older 05/26/2008,03/28/2000 Social History Tobacco Use Types Packs/Day Years Used Date Smoking Tobacco: Never Assessed Sex and Gender Information Value Date Recorded Sex Assigned at Not on file Legal Sex Male 11:05 AM EDT Gender Identity Not on file Sexual Orientation Not on file Last Filed Vital Signs Vital Sign Reading Time Taken Comments Blood Pressure 106/58 11/17/2024 7:46 AM EST Pulse 89 11/17/2024 7:46 AM EST Temperature 37.2 C (99 F) 11/17/2024 7:46 AM EST Respiratory Rate 12 11/17/2024 7:46 AM EST Oxygen Saturation - - Inhaled Oxygen Concentration - - Weight 82.1 kg (181 lb) 12/06/2024 9:38 AM EST Height 167.6 cm (5' 6 ) 12/06/2024 9:38 AM EST Body Mass Index 29.21 12/06/2024 9:38 AM EST Plan of Treatment Upcoming Encounters Date Type Department Care Team (Late st Contact Info) Description 09/02/2025 8:00 AM EST Office Visit Adult Medicine [facility] [address] [place] [address] Annabelle Linares MD [address] [place] [address] Health Maintenance Due Date Last Done Comments Pneumococcal Vaccine: Pediatrics (0 to 5 Years) and At-Risk Patients (6 to 49 Years) (1 of 2 - PCV) 2012 HIV Screening 05/21/2024 Hepatitis C Screening 05/21/2024 Social Influencers of Health Screening 05/21/2024 COVID-19 Vaccine ( season) 2024 Depression Screening 10/20/2024 Influenza Vaccine (#1) 2025 06/28/2009 Cholesterol Screening (Lipid Panel) 12/06/2029 12/06/2024 DTaP,Tdap,and Td Vaccines (9 - Td or Tdap) 12/14/2029 12/14/2019, 05/26/2008, 06/06/2004, Additional history exists HIB Vaccines Completed 07/22/1994, 01/1994, 1993, Additional history exists Hepatitis B Vaccines Completed 11/24/1996, 02/10/1996, 11/06/1995 IPV Vaccines Completed 04/18/1997, 01/1994, 1993, Additional history exists MMR Vaccines Completed 04/18/1997, 06/19/1994 Meningococcal ACWY Vaccine Aged Out 05/26/2008 N o longer eligible based on patient's age to complete this topic Varicella Vaccines Completed 05/26/2008, 03/28/2000 HPV Vaccines Aged Out No longer eligi ble based on patient's age to complete this topic Hepatitis A Vaccines Aged Out No long er eligible based on patient's age to complete this topic Meningococcal B Vaccine Aged Out No l onger eligible based on patient's age to complete this topic RSV Immunization Patients Under 20 months Aged Out No longer eligible based on patient's age to complete this topic Procedures Procedure Name Priority Date/Time Associated Diagnosis Comments LIPID PANEL WITH REFLEX TO DIRECT LDL Routine 12/06/2024 10:07 AM EST Fatty liver from Last 3 Months or Most Recently Relevant to Health Maintenance Results * (ABNORMAL) Lipid panel with reflex to direct LDL (12/06/2024 10:07 AM EST) Cholesterol 211(H) 0 - 200 mg/dL LAB CHEMISTRY METHOD 12/06/2024 3:06 PM [facility] Triglycerides 186(H) 0 - 150 mg/dL LAB CHEMISTRY METHOD 12/06/2024 3:06 PM [facility] HDL 44 >=40 mg/dL LAB CHEMISTRY METHOD 12/06/2024 3:06 PM [facility] LDL Calculated 130(H) 0 - 100 mg/dL LAB CHEMISTRY METHOD 12/06/2024 3:06 PM [facility] VLDL Cholesterol Dash 37.2 mg/dL LAB CHEMISTRY METHOD 12/06/2024 3:06 PM [facility] Non HDL Chol. (LDL+VLDL) 167(H) <145 mg/dL LAB CHEMISTRY METHOD 12/06/2024 3:06 PM [facility] Chol/HDL Ratio 4.8(H) 0.0 - 4.4 LAB CHEMISTRY METHOD 12/06/2024 3:06 PM [facility] Blood Venous blood specimen / Unknown Venipuncture / Unknown 12/06/2024 10:07 AM EST 12/06/2024 10:07 AM EST Annabelle Linares MD LAB BLOOD ORDERABLES Final Result [facility] [address] [place] [address], from Last 3 Months or Most Recently Relevant to Health Maintenance Insurance [facility] [employer] Care Teams Typing Checker Relationship Specialty Start Date End Date Annabelle Linares MD [address] [facility] [place] [address] PCP - General 11/03/23
--- OUTSIDE RECORDS SUMMARY | 2025-05-16 12:29 | XMS_ITS | Encounter Summary ---
Author Organization [facility] Address [address] [place] [phone] Phone Care Team Providers Care Cordwood Cutter Name Role Phone Unavailable Primary Care Provider Unavailabl e Encounter Details Date Type Department Care Team (Late st Contact Info) Description 06/05/2017 Conversion Encounter [facility] - [address] [address] Social History Tobacco Use Types Packs/Day Years Used Date Smoking Tobacco: Never Assessed Sex and Gender Information Value Date Recorded Sex Assigned at Not on file Legal Sex Male 4:34 PM EDT Gender Identity Not on file Sexual Orientation Not on file documented as of this encounter Plan of Treatment Not on file documented as of this encounter Visit Diagnoses Not on filedocumented in this encounter
== END 2025-05-16 12:17 | disposition home or self-care (01) ==
LOC: HO.HOS 11:11
PROVIDERS: Visit Provider Physician Assistant
DX: S86.012A Strain of left Achilles tendon, initial encounter (principal)
CPT/HCPCS: 99203

== ENCOUNTER → 2025-05-16 11:10 | Outpatient (BNVA) | payer OTHER, SELFPAY | PROVIDERS: Visit Provider Physician Assistant | DX: S86.012A Strain of left Achilles tendon, initial encounter (principal) | CPT/HCPCS: 99202 ==

== ENCOUNTER 2025-07-01 09:40 | Outpatient (AMB) | payer OTHER, SELFPAY ==
--- NOTE | 2025-07-01 09:45 | A.OFFVIS_ITS ---
Vital Signs 07/01/25 09:49 Height 5 ft 6 in Weight 180 lb BMI 29.0 Intake Visit Reasons: 6wk f/u left achilles strain Intake Note: Raphael is a 30 year old male who presents today for a follow up of left Achilles tendon strain, DOI: 05/13/25. At his last visit an order to physical therapy was placed to work on range of motion, heel cord stretching and progress to strength and proprioceptive training. Patient reports that he has not been able to attend PT, stating due to being rescheduled. He is scheduled for therapy on 07/16/25. States he has been doing well, not fully healed but has been finding that at home stretches has been helping. Allergies escitalopram Adverse Reaction (Unknown, Verified 07/01/25 09:49) anger Medication List - Last Reconciled 07/01/25 by Shahid Montoya PA-C No Known Home Meds HPI HPI 6wk f/u left achilles strain: Details: 30-year-old gentleman returns to the office today for a follow-up left Achilles strain. He comes in wearing regular street shoes. He states he has been unable to attend physical therapy. He is doing well except for when he tries to push off or stand on his tip toes he has some discomfort. [facility] Social History (Updated 05/16/25 @ 11:16 by Linda Davenport Evan) Alcohol intake: current Alcohol intake frequency: holidays/special occasions only Patient Tobacco Use Status: Never used Tobacco e-Cigarette/Vaping Use: Never Used Current occupational status: employed Current occupation: [employer] Review of Systems Const All systems reviewed & are unremarkable except as noted in HPI and below Physical Exam Vital Signs: BMI result Body Mass Index 29.0 Const General: cooperative and no acute distress Orientation/consciousness: patient oriented x3 Resp Effort & Inspection: normal respiratory effort and able to speak in complete sentences Cardio Peripheral pulses: Peripheral pulses 2+ throughout Neuro General: patient oriented x3 Extrem Other: Left achilles tendon without deformity. There is very mild TTP along the tendon into the calf. Negative thompsons. NVI Assessment & Plan Assessment & Plan (1) Strain of left Achilles tendon: Code(s): S86.012A - Strain of left Achilles tendon, initial encounter Category: Medical Plan: Patient continues to do well and he can increase activities as tolerated. I did stress the importance of physical therapy to work on strengthening conditioning to prevent re-injury. He will contact our office if symptoms arise otherwise follow up as needed. Coding Level of Care Code Est Pt Level 3 (45559) Complex EM visit Add On G2211 Diagnoses Strain of left Achilles tendon S86.012A
[2025-07-01 09:49] VITALS: BMI 29.0
--- OUTSIDE RECORDS SUMMARY | 2025-07-01 10:48 | XMS_ITS | Clinical Summary ---
Author Organization [facility] [address] [place] [address] [place] [address] Phone Care Team Providers Care Able Bodied Tankerman Name Role Phone Annabelle Linares MD Primary Care Provider [phone] Allergies No known active allergies Medications No [...] 8:00 AM EST Office Visit [place] Medicine [facility] [address] [place] [address] Annabelle Linares MD [address] [place] [address] Health Maintenance Due Date Last Done Comments Pneumococcal Vaccine: Pediatrics (0 to 5 Years) and At-Risk Patients (6 to 49 Years) (1 of 2 - PCV) 2012 HIV Screening 05/21/2024 Hepatitis C Screening 05/21/2024 Social Influencers of Health Screening 05/21/2024 Depression Screening 10/20/2024 COVID-19 Vaccine (1 - season) 2025 Influenza Vaccine (#1) 2025 06/28/2009 Cholesterol Screening [...] mg/dL LAB CHEMISTRY METHOD 12/06/2024 3:06 PM [facility] Triglycerides 186(H) 0 - 150 mg/dL LAB CHEMISTRY METHOD 12/06/2024 3:06 PM [facility] HDL 44 >=40 mg/dL LAB CHEMISTRY METHOD 12/06/2024 3:06 PM [facility] LDL Calculated 130(H) 0 - 100 mg/dL LAB CHEMISTRY METHOD 12/06/2024 3:06 PM [facility] VLDL Cholesterol Dash 37.2 mg/dL LAB CHEMISTRY METHOD 12/06/2024 3:06 PM [facility] Non HDL Chol. (LDL+VLDL) 167(H) <145 mg/dL LAB CHEMISTRY METHOD 12/06/2024 3:06 PM [facility] Chol/HDL Ratio 4.8(H) 0.0 - 4.4 LAB CHEMISTRY METHOD 12/06/2024 3:06 PM [facility] [place] [facility] Blood Venous blood specimen / Unknown Venipuncture / Unknown 12/06/2024 10:07 AM EST 12/06/2024 10:07 AM EST Annabelle Linares MD LAB BLOOD ORDERABLES Final Result [facility] [address] [place] [address], from Last 3 Months or Most Recently Relevant to Health Maintenance Insurance [facility] [employer] Care Teams Able Bodied Tankerman Relationship Specialty Start Date End Date Annabelle Linares MD [address] [place] [address] PCP - General 11/03/23
--- OUTSIDE RECORDS SUMMARY | 2025-07-01 10:48 | XMS_ITS | Encounter Summary ---
Author Organization [facility] Address [address] [place] [phone] Phone Care Team Providers Care Space Operations Officer Name Role Phone Unavailable Primary Care Provider Unavailabl e Encounter Details Date Type Department Care Team (Late st Contact Info) Description 06/05/2017 Conversion Encounter [facility] - [address] [address] Social History Tobacco Use Types Packs/Day Years [...]
--- OUTSIDE RECORDS SUMMARY | 2025-07-01 10:49 | XMS_ITS | Clinical Summary ---
Author Organization [facility] Address [address] [place] [address] Phone Care Team Providers Care Php Mysql Web Developer Name Role Phone Unavailable Primary Care Provider Unavailabl e Immunizations Immunization Administration Dates Next Due DTP 04/18/1997, 4,1993,08/10,1993 Hep B, ped/adol 11/24/1996,02/10/1996,11/06/1995 Hib (PRP-T) 07/22/1994, 4,1993,06/08 Influenza, injectable, trivalent 06/28/2009 MMR 04/18/1997,06/19/1994 Meningococcal Conj (Menactra) MCV4P 05/26/2008 OPV 04/18/1997, 4,1993,06/08 Td (adult) (MBL), 2 Lf tetan us toxoid, PF, adsorbed 06/06/2004 Tdap 05/26/2008 Varicella 05/26/2008,03/28/2000 Social History Tobacco Use Types Packs/Day Years Used Date Smoking Tobacco: Never Assessed Sex and Gender Information Value Date Recorded Sex Assigned at Not on file Legal Sex Male 4:34 PM EDT Gender Identity Not on file Sexual Orientation Not on file Plan of Treatment Health Maintenance Due Date Last Done Comments DTaP,Tdap,and Td Vaccines (7 - Td or Tdap) 05/26/2018 05/26/2008, 06/06/2004, 04/18/1997, Additional history exists HPV Vaccines (1 - 3-dose SCDM series) 2020 Influenza Vaccines (#1) 2025 06/28/2009 COVID-19 Vaccine ( season) 2025 HIB Vaccines Completed 07/22/1994, 01/1994, 1993, Additional history exists Hepatitis B Vaccines Completed 11/24/1996, 02/10/1996, 11/06/1995 IPV Vaccines Completed 04/18/1997, 01/1994, 1993, Additional history exists MMR Vaccines Completed 04/18/1997, 06/19/1994 Meningococcal Vaccine Aged Out 05/26/2008 No eder sylvia eligible based on patient's age to complete this topic Varicella Vaccines Completed 05/26/2008, 03/28/2000 Hepatitis A Vaccines Aged Out No long er eligible based on patient's age to complete this topic Men B Vaccine Aged Out No longer elig ible based on patient's age to complete this topic Pneumococcal Vaccine Aged Out No long er eligible based on patient's age to complete this topic
== END 2025-07-01 10:27 | disposition home or self-care (01) ==
LOC: HO.HOS 09:41
PROVIDERS: Visit Provider Physician Assistant
DX: S86.012A Strain of left Achilles tendon, initial encounter (principal)
CPT/HCPCS: 99213

== ENCOUNTER → 2025-07-01 09:40 | Outpatient (BNVA) | payer OTHER, SELFPAY | PROVIDERS: Visit Provider Physician Assistant | DX: S86.012D Strain of left Achilles tendon, subsequent encounter (principal) | CPT/HCPCS: 99212 ==

== ENCOUNTER 2025-09-19 01:18 | Emergency (ER) | payer OTHER, SELFPAY ==
[2025-09-19 01:21] VITALS: BP 135/76; PULSE 81; RESP 16; TEMP 36.4; O2SAT 99; BMI 29.2
--- OUTSIDE RECORDS SUMMARY | 2025-09-19 02:24 | XMS_ITS | Encounter Summary ---
Author Organization [facility] Address [address] [place] [address] Care Team Providers Care Flea Market Seller Name Role Phone Annabelle Linares MD Primary Care Provider [phone] Encounter Details Date Type Department Care Team ([facility] st Contact Info) Description 09/02/2025 Results Follow-Up Adult Medicine [facility] [address] [place] [address] Annabelle Linares MD [address] [place] [address] Social History Tobacco Use Types Packs/Day Years Used Date Smoking Tobacco: Never Assessed Housing Instability Answer Date Recorde d Are you worried that in the next 2 months you may not have stable housing? No 09/02/2025 Food Access & Nutrition Answer Date Rec orded Do you have access to a vari ety of food including fruits and vegetables? Yes 09/02/2025 Access to Healthcare Answer Date Record ed Within the last 3 months, ho w many times did you visit the emergency department for your medical care? 0 09/02/2025 Health Literacy Answer Date Recorded How often do you need to hav e someone help you when you read instructions, pamphlets, or other written material from your doctor or pharmacy? Never 09/02/2025 Caregiver: How often do you need to have someone help you when you read instructions, pamphlets, or other written material from your doctor or pharmacy? Not on file 09/02/2025 Financial Risk Answer Date Recorded How hard is it for you to pa y for the very basics like food, housing, medical care, and air conditioning / heating? Not very hard 09/02/2025 Transportation Answer Date Recorded Has the lack of transportati on kept you from meetings, work, or from getting things needed for daily living? No Has the lack of transportati on kept you from medical appointments or from getting medications? No 09/02/2025 Social Isolation Answer Date Recorded How often do you feel lonely or isolated from th ose around you? Never 09/02/2025 Food Risk Answer Date Recorded Within the past 12 months we worried whether our food would run out before we got money to buy more. Never true 09/02/2025 Within the past 12 months th e food we bought just didn't last and we didn't have money to get more. Never true 09/02/2025 Dependent Care Answer Date Recorded Do you need help finding or paying for care for your loved ones. For example, child welfare assistant or elderly care for an older adult? No 09/02/2025 Education Answer Date Recorded Do you think completing more education or training, like finishing a GED, going to college, or learning a trade, would be helpful for you? No 09/02/2025 Employment and Income Answer Date Recor ded During the last four weeks, have you been actively looking for work? No 09/02/2025 Living Situation Answer Date Recorded What is your living situation? Unrecognized valu e 09/02/2025 Sex and Gender Information Value Date Recorded Sex Assigned at Male 09/13/2025 11:18 AM EST Legal Sex Male 11:05 AM EDT Gender Identity Male 09/13/2025 11:18 AM EST Sexual Orientation Straight 09/13/2025 11 :18 AM EST documented as of this encounter Plan of Treatment Upcoming Encounters Date Type Department Care Team (Late st Contact Info) Description 09/30/2025 8:00 AM EST Evaluation Outpatient Rehabilitation - [address] [phone] Coy Pastrana PT 09/22/2026 8:00 AM EST Office Visit Adult Medicine [address] [phone] Annabelle Linares MD [address] [place] [address] documented as of this encounter Visit Diagnoses Not on filedocumented in this encounter Additional Health Concerns Assessment Noted Time PHQ-9 Depression Total Score: 0 09/02/20 25 8:03 AM EST documented as of this encounter Care Teams Flea Market Seller Relationship Specialty Start Date End Date Annabelle Linares MD [address] [place] [address] PCP - General 11/03/23 documented as of this encounter
--- OUTSIDE RECORDS SUMMARY | 2025-09-19 02:24 | XMS_ITS | Encounter Summary ---
Author Organization [facility] Address [address] [place] [address] Phone Care Team Providers Care Child Specialist Name Role Phone Unavailable Primary Care Provider Unavailabl e Encounter Details Date Type Department Care Team (Late st Contact Info) Description 06/05/2017 Conversion Encounter [facility] - [address] [address] Social History Tobacco Use Types Packs/Day Years [...]
--- OUTSIDE RECORDS SUMMARY | 2025-09-19 02:24 | XMS_ITS | Clinical Summary ---
Author Organization [facility] Address [address] [place] [address] Phone Care Team Providers Care Eeg Tech Name Role Phone Unavailable Primary Care Provider [...]
--- OUTSIDE RECORDS SUMMARY | 2025-09-19 02:24 | XMS_ITS | Encounter Summary ---
Author Organization [facility] Address [address] [place] [address] Care Team Providers Care Fruit Checker Name Role Phone Annabelle Linares MD Primary Care Provider [phone] Encounter Details Date Type Department Care Team ([facility] st Contact Info) Description 09/02/2025 Results Follow-Up Adult Medicine [facility] [address] [place] [address] Annabelle Linares MD [address] [place] [address] Social History Tobacco Use Types Packs/Day Years [...] for your loved ones. For example, child development specialist or elderly care for an older adult? [...] 8:00 AM EST Evaluation Outpatient Rehabilitation - [address] [phone] Coy Pastrana PT 09/22/2026 8:00 AM EST Office Visit Adult Medicine [address] [phone] Annabelle Linares MD [address] [place] [address] Scheduled Orders Name Type Priority Associated Diagnoses Orde r Schedule Lipid panel with reflex to direct LDL Lab Routine Hyperlipidemia, unspecified hyperlipidemia type 1 Occurrences starting 09/02/2025 until 09/02/2026 documented as of this encounter Visit Diagnoses Diagnosis Hyperlipidemia, unspecified hyperlipidemia type- Primary documented in this encounter Additional Health Concerns Assessment Noted Time PHQ-9 Depression Total Score: 0 09/02/20 25 8:03 AM EST documented as of this encounter Care Teams Fruit Checker Relationship Specialty Start Date End Date Annabelle Linares MD [address] [place] [address] PCP - General 11/03/23 documented as of this encounter
--- OUTSIDE RECORDS SUMMARY | 2025-09-19 02:25 | XMS_ITS | Clinical Summary ---
Author Organization [facility] Address [address] [place] [phone] Phone Care Team Providers Care Home Service Advisor Name Role Phone Annabelle Linares MD Primary Care Provider [phone] Allergies No known active allergies Medications clotrimazole-b etamethasone (LOTRISONE) 1-0.05 % cream Apply thin layer to affected area BID for 2 weeks then stop. Avoid face and groin. 30 g 1 09/02/20 25 Active diclofenac (VOLTAREN) 1 % topical gel Apply 2 g topically 2 (two) times a day. 60 g 1 09/02/20 25 Active diclofenac (VOLTAREN) 50 mg EC tablet Take 1 tablet (50 mg total) by mouth 2 (two) times a day if needed (pain). Do not crush, chew, or split. 28 tablet 1 09/02/20 25 Active triamcinolone (KENALOG) 0.1 % cream Apply to affected area 1-2 times daily as needed for arms 30 g 09/06/20 25 026 Active triamcinolone (KENALOG) 0.1 % cream Apply to affected area 1-2 times daily as needed for arms 30 g 09/02/20 25 025 Discontinued(Re order) cyclobenzaprin e (FLEXERIL) 5 mg tablet Take 1 tablet (5 mg total) by mouth at bedtime as needed for muscle spasms. 30 tablet 09/02/20 25 025 Discontinued Active Problems Problem Noted Date Diagnosed Date Insomnia 09/02/2025 Overweight (BMI 25.0-29.9) 09/02/2025 Rash 09/02/2025 Chronic upper back pain 09/02/2025 Chronic low back pain 09/02/2025 Encounters Date Type Department Care Team Description 09/02/2025 8:55 AM EST Lab Draw Station [address] Annual physical exam; Hyperlipidemia, unspecified hyperlipidemia type; Elevated liver enzymes 09/02/2025 8:26 AM EST - 09/02/2025 11:59 PM EST Hospital Encounter [address] [phone] Annual physical exam; Chronic upper back pain Discharge Disposition: Home or Self Care 09/02/2025 8:26 AM EST - 09/02/2025 11:59 PM EST Hospital Encounter [address] [phone] Annual physical exam; Chronic low back pain, unspecified back pain laterality, unspecified whether sciatica present Discharge Disposition: Home or Self Care 09/02/2025 8:00 AM EST Office Visit Adult Medicine [address] [phone] Annabelle Linares MD Annual physical exam (Primary Dx); Routine general medical examination at a health care facility; Insomnia, unspecified type; Chronic low back pain, unspecified back pain laterality, unspecified whether sciatica present; Chronic upper back pain; Rash; Overweight (BMI 25.0-29.9) 09/02/2025 Results Follow-Up Adult Medicine [address] [phone] Annabelle Linares MD 09/02/2025 Results Follow-Up Adult Medicine [address] [phone] Annabelle Linares MD from Last 3 Months Immunizations Immunization Administration Dates Next Due DTP 04/18/1997,,1993,08/10,1993 Hepatitis B Pediatric (Enger ix B; Recombivax [...] care for your loved ones. For example, director of early childhood or elderly care for an older adult? [...] Orientation Straight 09/13/2025 11 :18 AM EST Last Filed Vital Signs Vital Sign Reading Time Taken Comments Blood Pressure 122/63 09/02/2025 7:49 AM EST Pulse 74 09/02/2025 7:49 AM EST Temperature 36.6 C (97.8 F) 09/02/2025 7:49 AM EST Respiratory Rate 12 11/17/2024 7:46 AM EST Oxygen Saturation - - Inhaled Oxygen Concentration - - Weight 82.6 kg (182 lb) 09/02/2025 7:49 AM EST Height 167.6 cm (5' 6 ) 09/02/2025 7:49 AM EST Body Mass Index 29.38 09/02/2025 7:49 AM EST Plan of Treatment Upcoming Encounters Date Type Department Care Team (Late st Contact Info) Description 09/30/2025 8:00 AM EST Evaluation Outpatient [address] [phone] Coy Pastrana, KRYSTLE 09/22/2026 8:00 AM EST Office Visit Adult Medicine [address] [phone] Annabelle Linares MD [address] [place], [place] Health Maintenance Due Date Last Done Comments Influenza Vaccine (#1) 2026 06/28/2009 Postp oned from 06/20/2025 (Patient Refused) Social Influencers of Health Screening 09/02/2026 09/02/2025 COVID-19 Vaccine ( - season) 2026 Postponed from 06/20/2025 (Patient Refused) HPV Vaccines (1 - 3-dose SCDM series) 09/11/2026 Postponed from 2020 (Patient Refused) DTaP,Tdap,and Td Vaccines (9 - Td or Tdap) 12/14/2029 12/14/2019, 05/26/2008, 06/06/2004, Additional history exists Cholesterol Screening (Lipid Panel) 09/02/2030 09/02/2025, 12/06/2024 RSV Immunization Adult Patients (1 - 1-dose 75+ series) 2068 HIB Vaccines Completed 07/22/1994, 01/1994, 1993, Additional history exists Hepatitis B Vaccines Completed 11/24/1996, 02/10/1996, 11/06/1995 IPV Vaccines Completed 04/18/1997, 01/1994, 1993, Additional history exists MMR Vaccines Completed 04/18/1997, 06/19/1994 Meningococcal ACWY Vaccine Aged Out 05/26/2008 N o longer eligible based on patient's age to complete this topic Varicella Vaccines Completed 05/26/2008, 03/28/2000 Depression Screening Completed 09/02/2025 HIV Screening Completed 09/02/2025 Hepatitis C Screening Completed 09/02/2025 Hepatitis A Vaccines Aged Out No long er eligible based on patient's age to complete this topic Meningococcal B Vaccine Aged Out No l onger eligible based on patient's age to complete this topic Pneumococcal Vaccine: Pediatrics (0 to 5 Years) and At-Risk Patients (6 to 49 Years) Aged Out No longer eligible based on patient's age to complete this topic RSV Immunization Patients Under 20 months Aged Out No longer eligible based on patient's age to complete this topic Procedures Procedure Name Priority Date/Time Associated Diagnosis Comments HEPATIC FUNCTION PANEL Routine 8:49 AM EST Elevated liver enzymes LIPID PANEL WITH REFLEX TO DIRECT LDL Routine 09/02/2025 8:49 AM EST Hyperlipidemia, unspecified hyperlipidemia type THYROID STIMULATING HORMONE WITH REFLEX TO FREE T4 AND FREE T3 Routine 09/02/2025 8:49 AM EST Annual physical exam TREPONEMA PALLIDUM ANTIBODY WITH REFLEX TO RPR AND PARTICLE AGGLUTINATION Routine 09/02/2025 8:49 AM EST Annual physical exam HIV 1, 2 ANTIBODY, P24 ANTIGEN WITH REFLEX TO DIFFERENTIATION Routine 09/02/2025 8:49 AM EST Annual physical exam HEPATITIS PANEL, ACUTE WITH REFLEX TO CONFIRMATION Routine 09/02/2025 8:49 AM EST Annual physical exam HERPES SIMPLEX VIRUS 1 AND 2, IGG Routine 09/02/2025 8:49 AM EST Annual physical exam CHLAMYDIA TRACHOMATIS AND NEISSERIA GONORRHOEAE PCR Routine 09/02/2025 8:49 AM EST Annual physical exam HERPES SIMPLEX VIRUS 1 AND 2 PCR, QUALITATIVE Routine 09/02/2025 8:49 AM EST Annual physical exam XR LUMBAR SPINE 4+ VIEWS Routine 09/02/2025 8:37 AM EST Annual physical exam Chronic low back pain, unspecified back pain laterality, unspecified whether sciatica present XR THORACIC SPINE 2 VIEWS Routine 09/02/2025 8:36 AM EST Annual physical exam Chronic upper back pain from Last 3 Months Results * HIV 1,2 antibody, p24 antigen with reflex to differentiation (09/02/2025 8:49 AM EST) Pathologist [facility] HIV Combo AB/AG Negative Negative LAB CHEMISTRY METHOD 09/02/2025 12:50 PM EST [facility] Blood Venous blood specimen / Unknown Venipuncture / Unknown 09/02/2025 8:49 AM EST 09/02/2025 8:49 AM EST Narrative [facility] - 09/02/2025 12:50 PM EST This assay is a 4th generation assay allowing for earlier detection of HIV infection by detecting the presence of the HIV-1 p24 antigen as well as the traditional antibodies to HIV type 1 (including group O) and type 2. Use of a 4th generation assay is the current CDC recommendation for HIV screening. Annabelle Linares MD LAB BLOOD ORDERABLES Final Result Performing Organization Address City/[facility]/ZIP Co de Phone Number [facility] [address] [place] [address], [place] [phone] * Treponema pallidum antibody with reflex to RPR and particle agglutination (09/02/2025 8:49 AM EST) [facility] T. Pallidum Antibodies Negative Negative LAB CHEMISTRY METHOD 09/02/2025 2:03 PM EST [facility] Blood Venous blood specimen / Unknown Venipuncture / Unknown 09/02/2025 8:49 AM EST 09/02/2025 8:49 AM EST Annabelle Linares MD LAB BLOOD ORDERABLES Final Result [facility] [address] [place] [address], [place] [phone] * Thyroid stimulating hormone with reflex to free t4 and free t3 (09/02/2025 8:49 AM EST) [facility] TSH 1.94 0.40 - 4.00 mcIU/mL LAB CHEMISTRY METHOD 09/02/2025 1:53 PM [facility] Blood Venous blood specimen / Unknown Venipuncture / Unknown 09/02/2025 8:49 AM EST 09/02/2025 8:49 AM EST us Annabelle Linares MD LAB BLOOD ORDERABLES Final Result [facility] [address] [place] [address], [place] [phone] * (ABNORMAL) Lipid panel with reflex to direct LDL (09/02/2025 8:49 AM EST) [facility] Cholesterol 208(H) 0 - 200 mg/dL LAB CHEMISTRY METHOD 09/02/2025 11:05 AM [facility] Triglycerides 174(H) 0 - 150 mg/dL LAB CHEMISTRY METHOD 09/02/2025 11:05 AM [facility] HDL 44 >=40 mg/dL LAB CHEMISTRY METHOD 09/02/2025 11:05 AM [facility] LDL Calculated 129(H) 0 - 100 mg/dL LAB CHEMISTRY METHOD 09/02/2025 11:05 AM [facility] Comment:Estimated LDL Calcul ated using equation: Total cholesterol - HDL cholesterol - (Triglycerides/5) VLDL Cholesterol Dash 34.8 mg/dL LAB CHEMISTRY METHOD 09/02/2025 11:05 AM [facility] Non HDL Chol. (LDL+VLDL) 164(H) <145 mg/dL LAB CHEMISTRY METHOD 09/02/2025 11:05 AM [facility] Chol/HDL Ratio 4.7(H) 0.0 - 4.4 LAB CHEMISTRY METHOD 09/02/2025 11:05 AM [facility] Blood Venous blood specimen / Unknown Venipuncture / Unknown 09/02/2025 8:49 AM EST 09/02/2025 8:49 AM EST Annabelle Linares MD LAB BLOOD ORDERABLES Final Result [facility] [address] [place] [address], [place] [phone] * Hepatitis panel, acute with reflex to confirmation (09/02/2025 8:49 AM EST) Pathologist [facility] Hepatitis B Surface Ag Negative Negative LAB CHEMISTRY METHOD 09/02/2025 12:51 PM EST [facility] Hepatitis A Antibody IgM Negative Negative LAB CHEMISTRY METHOD 09/02/2025 12:51 PM EST [facility] Hep B Core IgM Negative Negative LAB CHEMISTRY METHOD 09/02/2025 12:51 PM EST [facility] Hepatitis C Antibody Negative Negative LAB CHEMISTRY METHOD 09/02/2025 12:51 PM EST [facility] Blood Venous blood specimen / Unknown Venipuncture / Unknown 09/02/2025 8:49 AM EST 09/02/2025 8:49 AM EST Annabelle Linares MD LAB BLOOD ORDERABLES Final Result Performing Organization Address City/[facility]/ZIP Co de Phone Number [facility] [address] [place] [address], [place] [phone] * Herpes simplex virus 1 and 2 molecular study, qualitative (09/02/2025 8:49 AM EST) Pathologist [facility] Specimen Source Blood - EDTA 09/05/2025 11:13 AM EST [facility] Herpes simplex Virus I Not detected Not detected 09/05/2025 11:13 AM EST [facility] Herpes simplex Virus II Not detected Not detected 09/05/2025 11:13 AM EST [facility] Comment: This test utilizes a real-time polymerase chain reaction procedure to amplify and detect portions of the herpes simplex virus glycoprotein G genes. The analytical sensitivity of this assay is 50 copies/mL. A Not detected result does not rule out infection. This test uses commercial reagents that have not been approved or cleared by the FDA. The FDA has determined that such clearance or approval is not necessary. The performance characteristics of this procedure were determined by [facility]. This test is performed pursuant to a license agreement with [employer] Test performed at [facility], [address] , [place] [address] Cherie Nicholson MD, PhD - Manager Food Blood Venous blood specimen / Unknown Venipuncture / Unknown 09/02/2025 8:49 AM EST 09/02/2025 8:49 AM EST Annabelle Linares MD LAB MICROBIOLOGY - GENERAL ORDERABLES Final Result [facility] [address] [place] [address] * Herpes simplex virus 1 and 2, IgG (09/02/2025 8:49 AM EST) Pathologist [facility] HSV 1 IgG 0.08 <=0.90 index maricel LAB CHEMISTRY METHOD 09/02/2025 11:34 AM EST [facility] HSV-1 IgG Interpretation Negative Negative LAB CHEMISTRY METHOD 09/02/2025 11:34 AM EST [facility] HSV 2 IgG 0.09 <=0.90 index maricel LAB CHEMISTRY METHOD 09/02/2025 11:34 AM EST [facility] HSV-2 IgG Interpretation Negative Negative LAB CHEMISTRY METHOD 09/02/2025 11:34 AM EST [facility] Blood Venous blood specimen / Unknown Venipuncture / Unknown 09/02/2025 8:49 AM EST 09/02/2025 8:49 AM EST Annabelle Linares MD LAB BLOOD ORDERABLES Final Result Performing Organization Address City/[facility]/ZIP Co de Phone Number [facility] [address] [place] [address], [place] [phone] * Chlamydia trachomatis and Neisseria gonorrhoeae molecular study (09/02/2025 8:49 AM EST) [facility] Neisseria gonorrhoeae PCR Negative Negative LAB MOLECULAR DIAGNOSTICS METHOD 09/02/2025 1:07 PM [facility] Chlamydia trachomatis PCR Negative Negative LAB MOLECULAR DIAGNOSTICS METHOD 09/02/2025 1:07 PM [facility] Urine Urine specimen obtained by clean catch procedure / Unknown Non-blood Collection / Unknown 09/02/2025 8:49 AM EST 09/02/2025 8:49 AM EST Annabelle Linares MD LAB MICROBIOLOGY - GENERAL ORDERABLES Final Result [facility] [address] [place] [address], * Hepatic function panel (09/02/2025 8:49 AM EST) [facility] Total Protein 7.7 6.0 - 8.0 g/dL LAB CHEMISTRY METHOD 09/02/2025 11:05 AM [facility] Albumin 4.3 3.2 - 5.0 g/dL LAB CHEMISTRY METHOD 09/02/2025 11:05 AM [facility] Total Bilirubin 0.6 0.0 - 1.4 mg/dL LAB CHEMISTRY METHOD 09/02/2025 11:05 AM [facility] Bilirubin, Direct 0.1 0.0 - 0.3 mg/dL LAB CHEMISTRY METHOD 09/02/2025 11:05 AM [facility] Bilirubin, Indirect 0.5 0.0 - 1.1 mg/dL LAB CHEMISTRY METHOD 09/02/2025 11:05 AM [facility] ALT (SGPT) 54 10 - 60 unit/L LAB CHEMISTRY METHOD 09/02/2025 11:05 AM [facility] AST (SGOT) 25 10 - 42 unit/L LAB CHEMISTRY METHOD 09/02/2025 11:05 AM EST [facility] Alkaline Phosphatase 97 42 - 121 unit/L LAB CHEMISTRY METHOD 09/02/2025 11:05 AM EST [facility] Blood Venous blood specimen / Unknown Venipuncture / Unknown 09/02/2025 8:49 AM EST 09/02/2025 8:49 AM EST us Annabelle Linares MD LAB BLOOD ORDERABLES Final Result [facility] [address] [place] [address], [place] [phone] * XR Lumbar Spine 4+ Views (09/02/2025 8:37 AM EST) Anatomical Region Laterality Modality Spine, L-spine Radiographic Keiko ging 09/02/2025 8:58 AM EST Impressions 09/02/2025 9:02 AM EST Minimal disc disease at L5-S1. -------- FINAL REPORT -------- Dictated By: Rosey Wang Dictated Date: 09/02/2025 08:58 ET Assigned Physician: Rosey Wang Reviewed and Electronically Signed By: Rosey Wang Signed Date: 09/02/2025 09:02 ET Workstation ID: [id number] Transcribed By: Self Edit Transcribed Date: 09/02/2025 08:58 ET Narrative 09/02/2025 9:02 AM EST EXAM: Lumbar spine x-ray HISTORY: Chronic low back pain. COMPARISON: None, correlation with CT abdomen and pelvis 11/17/2024 FINDINGS: 4 views of the lumbar spine were performed. 5 lumbar type vertebral bodies. Vertebral body heights are maintained. Minimal disc space narrowing at L5-S1. No evidence of spondylolysis or spondylolisthesis. Procedure Note Rosey Wang MD - 09/02/2025 EXAM: Lumbar spine x-ray HISTORY: Chronic low back pain. COMPARISON: None, correlation with CT abdomen and pelvis 11/17/2024 FINDINGS: 4 views of the lumbar spine were performed. 5 lumbar type vertebral bodies. Vertebral body heights are maintained.Minimal disc space narrowing at L5-S1. No evidence of spondylolysis orspondylolisthesis. IMPRESSION: Minimal disc disease at L5-S1. -------- FINAL REPORT -------- Dictated By: Rosey Wang Dictated Date: 09/02/2025 08:58 ET Assigned Physician: Rosey Wagn Reviewed and Electronically Signed By: Rosey Wang Signed Date: 09/02/2025 09:02 ET Workstation ID: [id number] Transcribed By: Self Edit Transcribed Date: 09/02/2025 08:58 ET us Annabelle Linares MD IMG XR PROCEDURES Final Res ult * XR Thoracic Spine 2 Views (09/02/2025 8:36 AM EST) Anatomical Region Laterality Modality Spine, T-spine Radiographic Keiko ging 09/02/2025 8:52 AM EST Impressions 09/02/2025 8:58 AM EST Mild scoliosis. No compression deformities. -------- FINAL REPORT -------- Dictated By: Rosey Wang Dictated Date: 09/02/2025 08:52 ET Assigned Physician: Rosey Wang Reviewed and Electronically Signed By: Rosey Wang Signed Date: 09/02/2025 08:58 ET Workstation ID: [id number] Transcribed By: Self Edit Transcribed Date: 09/02/2025 08:52 ET Narrative 09/02/2025 8:58 AM EST EXAM: Thoracic spine x-ray HISTORY: Chronic upper back pain. COMPARISON: None FINDINGS: AP and lateral views performed. Vertebral body heights are maintained. Mild levoscoliosis of the lower spine. Intervertebral disc spaces are maintained. Tiny calcifications of the anterior longitudinal ligament in the lower spine. No subluxation. Pedicles are intact. Procedure Note Rosey Wang MD - 09/02/2025 EXAM: Thoracic spine x-ray HISTORY: Chronic upper back pain. COMPARISON: None FINDINGS: AP and lateral views performed. Vertebral body heights are maintained. Mild levoscoliosis of the lowerspine. Intervertebral disc spaces are maintained. Tiny calcifications ofthe anterior longitudinal ligament in the lower spine. No subluxation.Pedicles are intact. IMPRESSION: Mild scoliosis. No compression deformities. -------- FINAL REPORT -------- Dictated By: Rosey Wang Dictated Date: 09/02/2025 08:52 ET Assigned Physician: Rosey Wang Reviewed and Electronically Signed By: Rosey Wang Signed Date: 09/02/2025 08:58 ET Workstation ID: [id number] Transcribed By: Self Edit Transcribed Date: 09/02/2025 08:52 ET us Annabelle Linares MD IMG XR PROCEDURES Final Res ult from Last 3 Months Insurance [facility] [place] [address] Care Teams Home Service Advisor Relationship Specialty Start Date End Date Annabelle Linares MD [address] [place] [address] PCP - General 11/03/23
--- NOTE | 2025-09-19 04:31 | ED.SKABFB ---
HPI - Skin/Abscess/Foreign Bdy General Chief complaint: Skin/Abscess/Foreign Body Stated complaint: Skin Rash Time Seen by Provider: 09/19/25 04:24 Source: patient Mode of arrival: ambulatory Limitations: no limitations History of Present Illness ED Provider: Dr. Karime Matos HPI narrative: Patient comes to the emergency room complaining of a side-effect to doxycycline. Patient states that he was put on doxycycline yesterday for a rash that he has a for 2 weeks. Patient states that he has been having itchy rash in both forearms. He was also given mupirocin. Patient denies any difficulty breathing, denies any hives. Related Data Previous Rx's ?Medication ?Instructions ?Recorded hydroxyzine HCl 25 mg tablet 25 mg PO TID PRN itching #14 tabs 09/19/25 prednisone 50 mg tablet 50 mg PO DAILY #4 tabs 09/19/25 Allergies Allergy/AdvReac Type Severity Reaction Status Date / Time escitalopram AdvReac Unknown anger Verified 09/19/25 01:23 Review of Systems Review of Systems: Constitutional : No Weight loss, No Fever, No Chills, No Night Sweats, No Fatigue, No Malaise, complaining of not feeling well after taking doxycycline ENT/Mouth : No Hearing loss, No Ear Pain, No Nasal Congestion, No Sinus Pain, No Hoarseness, No sore throat, No Rhinorrhea, No Swallowing Difficulty Eyes: No Eye Pain, No Swelling, No Redness, No Foreign Body, No Discharge, No Vision Changes Cardiovascular : No Chest Pain, No SOB, No Dyspnea on Exertion, No Orthopnea, No Edema, No Palpitations Respiratory : No Cough, No Sputum, No Wheezing, No Smoke Exposure, No Dyspnea Gastrointestinal : No Nausea, No Vomiting, No Diarrhea, No Constipation, No abdominal Pain, No Hematochezia, No Melena Genitourinary : no irregular bleeding, No Dysuria, No Urinary Frequency, No Hematuria, No Urinary Incontinence, No Urgency, No Flank Pain, No Urinary Flow Changes, No Hesitancy Musculoskeletal : No joint pain, No Myalgias, No Joint Swelling Skin : Complaining of scabs that were itchy at 7 point. In. Neuro : No Weakness, No Numbness, No Paresthesias, No Loss of Consciousness, No Dizziness, No Headache Psych : No Anxiety/Panic, No Depression, No SI/HI/AH/VH, No Social Issues, Heme/Lymph: No Bruising, No Bleeding,No Lymphadenopathy Endocrine : No Polyuria, No Polydipsia, No Temperature Intolerance [facility] Social History Social History (Updated 05/16/25 @ 11:16 by Linda Davenport [facility]) Alcohol intake: current Alcohol intake frequency: holidays/special occasions only Patient Tobacco Use Status: Never used Tobacco e-Cigarette/Vaping Use: Never Used Advance Directives: No Advance Directives Information Provided: No Current occupational status: employed Current occupation: [employer] Physical Exam Exam: Exam: Appearance: Alert. Oriented X3. No acute distress. Well-appearing Eyes: Pupils equal, round and reactive to light. ENT: Pharynx normal. Neck: Normal inspection. Neck supple. No lymph nodes noted. No crepitus CVS: Normal heart rate and rhythm. Pulses normal. Normal S1 and S2 Respiratory: No respiratory distress. Breath sounds normal. No Wheezing. No rales Abdomen: Soft and nontender. No rigidity. No distention. Skin: Skin warm and dry. Normal skin color. Normal skin turgor. Patient has multiple scabs in the forearms. Not infected. Extremities: No lower extremity edema. No Lacerations. No Rash Neuro: Oriented X 3. No motor deficit. No sensory deficit. Moving all extremities. No slurred speech. CN 2 through 12 grossly intact Psych: calm, cooperative, normal affect Vital Signs: Vital Signs: Last Vital Signs Temp 97.6 F 09/19/25 01:21 Pulse 81 09/19/25 01:21 Resp 16 09/19/25 01:21 BP 135/76 09/19/25 01:21 Pulse Ox 99 09/19/25 01:21 O2 Del Method Room Air 09/19/25 01:21 BMI result Body Mass Index 29.2 Medical Decision Making Medical Decision Making MDM Narrative: At this time, patient does not have any signs of infection. The scabs look like insect bites, none of them are infected. It is continued the patient's doxycycline and mupirocin, antibiotics are not indicated at this time. For the itching, patient was given hydroxyzine and a dose of prednisone. Discharge Plan Discharge Clinical Impression: Medication side effect Patient Disposition: Home, Self-Care Instructions: Adverse Drug Reaction (ED) Additional Instructions: Please follow-up with your primary care physician tomorrow. If you have any worsening or new symptoms, please return to the emergency room or call 911 Prescriptions: New prednisone 50 mg tablet 50 mg PO DAILY Qty: 4 0RF hydroxyzine HCl 25 mg tablet 25 mg PO TID PRN (Reason: itching) Qty: 14 0RF Print Language: Citizen Of [place]
[2025-09-19 04:48] VITALS: BP 117/71; PULSE 72; RESP 14; TEMP 36.2; O2SAT 98
== END 2025-09-19 04:49 | disposition home or self-care (01) ==
PROVIDERS: Emergency Provider Emergency Medicine; PCP Internal Medicine
DX: L29.9 Pruritus, unspecified (principal); T36.4X5A Adverse effect of tetracyclines, initial encounter; Y92.9 Unspecified place or not applicable
CPT/HCPCS: 99283

== ENCOUNTER 2025-09-25 16:24 | Emergency (ER) | payer OTHER, SELFPAY ==
--- NOTE | ~2025-09-25 | XR_ITS ---
CLINICAL HISTORY: cp sob 2 view chest x-ray Comparison: CR/SR - XR CHEST 2V - 09/09/24 07:46 EST Findings: Heart size is normal. No consolidation, pleural effusion or pneumothorax. No acute fracture. IMPRESSION: 1. No acute findings. This document has been electronically signed by: Clover Jimenez MD on 09/25/2025 17:26:39
--- NOTE | 2025-09-25 16:29 | ECG_ITS ---
Test Reason : CHEST PAIN Blood Pressure : */* mmHG Vent. Rate : 96 BPM Atrial Rate : 96 BPM P-R Int : 128 ms QRS Dur : 84 ms QT Int : 342 ms P-R-T Axes : 52 32 29 degrees QTcB Int : 432 ms Normal sinus rhythm Normal ECG When compared with ECG of 17-Mar-2025 00:25, No significant change was found Referred By: Amanda Holbrook Electronically Signed By: MARLEN HENDERSON MD
--- NOTE | 2025-09-25 16:29 | ED.CHESTPAIN ---
HPI - Chest Pain General Chief Complaint: Chest Pain Stated Complaint: cp Time Seen by Provider: 09/25/25 21:00 Source: patient Mode of arrival: ambulatory Limitations: no limitations History of Present Illness ED Provider: Dr. Yuliya Cazares HPI narrative: 30-year-old male presents with 1 weeks of persistent chest discomfort described as a pressure/heaviness (initially 6?7/10, increased to 8?9/10 while waiting in the ED) associated with a sensation of his heart ?beating out of his chest.? Symptoms occur at rest and with minimal exertion (e.g., walking on a treadmill for 1?2 minutes) and have never fully resolved. He also notes intermittent shortness of breath over the same period. Today, the symptoms were present while sitting in the waiting room. Additional associated symptoms: mild intermittent non-productive cough, nausea, mild constipation, generalized low energy, and episodic leg weakness. No fever, no hemoptysis, no leg swelling, no calf pain. Rash: Approximately 1 month of diffuse pruritic ?little red bumps/dots? initially over entire body, now improving yet still present on back, chest, and abdomen. Intensely pruritic?scratched to bleeding at times. Treated at urgent care with oral hydroxyzine and oral prednisone as well as a topical steroid cream; has 2 days of prednisone remaining. States rash improved with prednisone, itch improved with hydroxyzine. He denies daily prescription medications and has no history of hypertension or diabetes. Recent primary care physical (3 weeks ago) noted mildly elevated cholesterol and triglycerides with elevated blood sugar; no medication started. Family history notable for mother?s mother (maternal grandmother) reportedly dying at age 28 from an unspecified heart problem, no other family history of early heart disease or sudden cardiac . Related Data Previous Rx's ?Medication ?Instructions ?Recorded hydroxyzine HCl 25 mg tablet 25 mg PO TID PRN itching #14 tabs 09/19/25 prednisone 50 mg tablet 50 mg PO DAILY #4 tabs 09/19/25 Allergies Allergy/AdvReac Type Severity Reaction Status Date / Time escitalopram AdvReac Unknown anger Verified 09/25/25 16:36 Review of Systems Review of Systems: as per HPI, full review of systems performed and negative but for the above mentioned pertinent positives and negatives. [facility] Social History Social History (Reviewed 09/25/25 @ 22:23 by SAHRA Real Alcohol intake: current Alcohol intake frequency: does not drink Patient Tobacco Use Status: Never used Tobacco Smoked in Last 30 Days: No e-Cigarette/Vaping Use: Never Used Use of substances other than those prescribed or required for medical reasons: No Advance Directives: No Advance Directives Information Provided: Yes Do you have a plan to hurt others: No Plan Current occupational status: employed Current occupation: [employer] Physical Exam Exam: Exam: GENERAL: Well-Appearing, conversant, no acute distress. SKIN: Normal skin color for ethnicity, warm, dry, diffuse erythematous papular rash over chest, abdomen, and back; non-toxic appearance. HEENT:? Normocephalic, atraumatic, no stridor, posterior oropharynx nonerythematous, dentition intact, EOMI. NECK: Soft, supple, full ROM, midline structures nontender, no step-offs, no deformities, no lymphadenopathy. CHEST: Heart regular rate and rhythm, no murmurs, symmetric chest rise and fall. PULMONARY: Clear to auscultation bilaterally, no labored breathing, no wheezes/rhales/rhonchi. ABDOMINAL: Soft, nondistended, nontender, positive bowel sounds in all quadrants. : Deferred. MUSCULOSKELETAL: Normal tone, full range of motion, no deformities, no peripheral edema. NEURO: Alert and oriented x3, CN II through XII intact, equal strength and sensation bilateral upper and lower extremities, no focal neurologic deficits.? PSYCHIATRIC: Normal affect, fluid speech, good eye contact and appropriate demeanor. Vital Signs: Vital Signs: Last Vital Signs Temp 97.5 F 09/25/25 22:11 Pulse 77 09/25/25 22:11 Resp 16 09/25/25 22:11 BP 129/86 09/25/25 22:11 Pulse Ox 98 09/25/25 22:11 O2 Del Method Room Air 09/25/25 22:11 BMI result Body Mass Index 29.0 Course Course Course Narrative: This is a Rapid Medical Exam performed in triage by Amanda Holbrook PA-C. Full HPI, ROS and PE to be performed by primary ED provider. 30 yo M presenting to the ED c/o chest heaviness x few weeks. Admits to recent physical and had high cholesterol & sugar. CP is intermittent but today admits to fatigue/weakness & palpitations PE: NAD, nontoxic appearing, talking in complete sentences Plan: EKG, labs, CXR Medical Decision Making Medical Decision Making [facility] Narrative: Patient presenting with chief complaint of heart palpitations. Differential diagnosis includes heart palpitations, electrolyte abnormality, arrhythmia, ACS, thyroid dysfunction, substance use including stimulants such as caffeine, amphetamines, drug toxicity, among many others. The patient?s chest discomfort, palpitations, and shortness of breath are most consistent with medication side effects (combination of oral prednisone and hydroxyzine) given normal EKG and laboratory evaluation. Diffuse pruritic rash improving on prednisone; etiology likely allergic/eczema-type versus folliculitis. Problem #1: Palpitations / Chest Pain / Shortness of Breath ? likely medication-related Assessment: Symptoms temporally associated with initiation of hydroxyzine and prednisone; objective cardiac work-up normal. HEART score is 1 for risk factors (hyperlipidemia which is untreated at this time), making him low risk for MACE. PERC negative. Plan: Encouraged liberal oral hydration to mitigate medication-related dehydration effects. Avoid hydroxyzine if possible; may use only for intolerable pruritus. Return precautions: worsening chest pain, persistent palpitations, shortness of breath, or other concerning symptoms. Follow-up: reinforce appointment with PCP tomorrow for re-evaluation. Problem #2: Diffuse Pruritic Rash Assessment: Likely allergic/eczema-type eruption vs. folliculitis; improving with systemic steroids. Plan: Finish remaining 2 days of current prednisone course. Discuss with PCP need for possible longer taper or alternative lower-dose steroid regimen. Consider dermatology referral if rash persists or recurs. Symptomatic management: oatmeal or Epsom-salt baths; topical antipruritic creams as needed. Patient reports using Nizoral shampoo as recommended by urgent care for rash management. Monitor for signs of infection (fever, purulent drainage, spreading erythema); return to ED if these occur. Problem #3: Hyperlipidemia / Elevated Triglycerides (recent PCP labs) Assessment: Mild elevations noted three weeks ago; currently asymptomatic. Plan: Follow-up with PCP for repeat lipid panel and discussion of lifestyle modifications. Emphasized diet changes and exercise; acknowledge possible genetic component. Discharge when clinically appropriate with written instructions and strict return precautions. Differential Diagnosis Differential Diagnoses: The differential diagnosis associated with the presentation includes (as above) Admission/Observation Consideration of admission/observation: Escalation of care including admission/observation considered Lab Data [facility] Lab Attestation statement: I reviewed the patient's lab results. 09/25/25 16:56 09/25/25 16:56 Labs: Lab Results 09/25/25 09/25/25 Range/Units 16:56 20:31 WBC 8.1 (4.8-10.8) X10*3/uL RBC 5.19 (4.60-5.80) X10*6/uL Hgb 15.2 (14.0-18.0) g/dl Hct 45.6 (42.0-52.0) % MCV 87.9 (80.0-98.0) fL MCH 29.3 (27.0-33.0) pg MCHC 33.3 (31.0-36.0) g/dl RDW 12.3 (11.0-16.0) % Plt Count 188 (160-400) X10*3/uL MPV 10.9 (9.4-12.4) fL Immature Gran % (Auto) 0.5 H (0.0-0.4) % Neut % (Auto) 85.9 H (45-73) % Lymph % (Auto) 11.9 L (20-40) % Green % (Auto) 1.4 L (2-11) % Eos % (Auto) 0.1 (0-4) % Baso % (Auto) 0.2 (0-2) % Lymph # (Auto) 1.0 L (1.2-4.9) X10*3/uL Green # (Auto) 0.1 (0.1-1.2) X10*3/uL Eos # (Auto) 0.0 (0.0-0.4) X10*3/uL Baso # (Auto) 0.0 (0.0-0.2) X10*3/uL Abs Immat Gran (auto) 0.04 H (0.00-0.03) X10*3/uL Absolute Neuts (auto) 7.0 (2.0-8.3) x10*3/uL Absolute Nucleated RBC 0.000 (0.0-0.012) X10*3/uL Nucleated RBC % (auto) 0.0 (0.0-0.2) /100WBC Sodium 142 (135-145) mmol/L Potassium 4.8 (3.3-5.1) mmol/L Chloride 106 (96-108) mmol/L Carbon Dioxide 27 (22-29) mmol/L Anion Gap 14 (12-20) BUN 14 (9-16) mg/dL Creatinine 0.97 (0.5-1.4) mg/dL Estim Creat Clear Calc 109.6 Estimated GFR > 60 Random Glucose 138 H (60-115) mg/dL Calcium 10.1 (8.4-10.2) mg/dL Total Bilirubin 0.3 (0.0-1.0) mg/dL Direct Bilirubin 0.1 (0.0-0.5) mg/dL AST 26 (5-37) U/L ALT 65 H (0-40) U/L Alkaline Phosphatase 101 (39-117) U/L Troponin I High Sens < 2.7 < 2.7 (<3.5-35.0) ng/L Total Protein 8.3 H (6.5-8.0) g/dL Albumin 5.2 H (3.5-5.0) g/dL Influenza Type A (PCR) NEGATIVE (Negative) Influenza Type B (PCR) NEGATIVE (Negative) RSV RNA Qual (PCR) NEGATIVE (Negative) SARS-CoV-2 RNA (RT-PCR) NEGATIVE (Negative) Independent Interpretation I performed an independent interpretation of an: EKG and Plain X-Ray Interpretation: My independent interpretation of the chest x-ray reveals no consolidations, pulmonary edema, pleural effusion, pneumothorax, obvious bony abnormalities. My independent interpretation of the ECG reveals normal sinus rhythm with rate of 96, normal axis, normal intervals, no ST elevations or depressions to suggest ischemic changes, relatively unchanged from previous on 03/17/2025. Radiology Impression Discussion of test interpretation with radiology: I have reviewed the radiologist's reading. External Record Review External record reviewed: Inpatient record Chronic Conditions Patient?s care impacted by: Other (hyperlipidemia) Discharge Plan Discharge Clinical Impression: Heart palpitations, Pruritic rash, Acute chest pain Patient Disposition: Home, Self-Care Instructions: Heart Palpitations (ED) Additional Instructions: DIAGNOSIS & TREATMENT: You were seen in the Emergency Department for your chest discomfort. We performed an EKG, laboratory work and chest xray which did not reveal any acute abnormalities that would explain your symptoms. this is more likely related to your medications ( hydroxyzine and prednisone ) which can cause side effects like heart palpitations. Try to use hydroxyzine sparingly for your itchy rash. Follow up with your primary care doctor regarding continued use of prednisone or other steroids for the rash. FURTHER CARE: We have not found any emergent physical exam or lab abnormalities that would require admission to the hospital today. Many people who come to the ER with chest discomfortn do not leave with a specific diagnosis at the end of their visit. In the Emergency Department we try to make sure that there is no emergent problem that needs admission to the hospital or antibiotics right now. This does not mean that your evaluation is complete--please be sure to follow up with your regular doctor as additional testing as an outpatient may be indicated. Please be certain to drink plenty of fluids over the next several days. Try to use an oatmeal bath to help with the itchy skin. WHEN YOU SHOULD BE SEEN NEXT: Please follow-up with your primary care provider within the next 2-3 days for reevaluation of your symptoms. WHEN TO RETURN TO THE ED: Monitor your symptoms closely and return to the emergency department immediately for any new/worsening symptoms including: Worsening chest pain, difficulty breathing, fevers greater than 100 degrees, passing out, any new symptom that concerns you. Call 911 with any medical emergency. Prescriptions: No Action prednisone 50 mg tablet 50 mg PO DAILY Qty: 4 0RF hydroxyzine HCl 25 mg tablet 25 mg PO TID PRN (Reason: itching) Qty: 14 0RF Interventions: ED Discharge Assessment Last Done: 09/25/25 22:11 Discharge Date/Time: 09/25/25 22:11 Print Language: Korean
[2025-09-25 16:34] VITALS: BP 146/79; PULSE 85; RESP 18; TEMP 36.6; O2SAT 98; BMI 29.0
[2025-09-25 17:02] LABS: MANUAL DIFF FLAG NO
--- OUTSIDE RECORDS SUMMARY | 2025-09-25 17:02 | XMS_ITS | Clinical Summary ---
Author Organization [facility] Address [address] [place] [address] Phone Care Team Providers Care Theatrical Variety Agent Name Role Phone Unavailable Primary Care Provider [...] 06/19/1994 Meningococcal Vaccine Aged Out 05/26/2008 No edre sylvia eligible based on patient's age to [...]
--- OUTSIDE RECORDS SUMMARY | 2025-09-25 17:02 | XMS_ITS | Encounter Summary ---
Author Organization [facility] Address [address] [place] [id number] Phone Care Team Providers Care Leather Sprayer Name Role Phone Unavailable Primary Care Provider Unavailabl e Encounter Details Date Type Department Care Team (Late st Contact Info) Description 06/05/2017 Conversion Encounter [facility] - [address] [id number] Social History Tobacco Use Types Packs/Day Years [...]
[2025-09-25 17:07] LABS: Hematocrit 45.6 % (42.0-52.0); Hemoglobin 15.2 g/dl (14.0-18.0); Imm Gran Abs Auto 0.04 X10*3/uL (0.00-0.03); Imm Gran Pct Auto 0.5 % (0.0-0.4); Lymphocytes Absolute Auto 1.0 X10*3/uL (1.2-4.9); Mean Corpuscular HGB Conc 33.3 g/dl (31.0-36.0); Mean Corpuscular Hemoglobin 29.3 pg (27.0-33.0); Mean Corpuscular Volume 87.9 fL (80.0-98.0); NRBC Abs Auto 0.000 X10*3/uL (0.0-0.012); NRBC Pct Auto 0.0 /100WBC (0.0-0.2); Platelet Count 188 X10*3/uL (160-400); Red Blood Count 5.19 X10*6/uL (4.60-5.80); White Blood Count 8.1 X10*3/uL (4.8-10.8)
[2025-09-25 17:22] LABS: Alanine Aminotransferase 65 U/L (0-40); Albumin Level 5.2 g/dL (3.5-5.0); Alkaline Phosphatase 101 U/L (39-117); Anion Gap 14 (12-20); Aspartate Amino Transferase 26 U/L (5-37); Blood Urea Nitrogen 14 mg/dL (9-16); Calcium 10.1 mg/dL (8.4-10.2); Carbon Dioxide 27 mmol/L (22-29); Chloride 106 mmol/L (96-108); Creatinine Clr Calc Pharmacy 109.6; Estimated Glomerular Filt Rate > 60; Potassium 4.8 mmol/L (3.3-5.1); Sodium 142 mmol/L (135-145); Total Protein 8.3 g/dL (6.5-8.0)
[2025-09-25 17:29] LABS: Troponin-I High Sensitivity < 2.7 ng/L (<3.5-35.0)
[2025-09-25 17:40] LABS: Resp Syncy Virus RNA Qual PCR NEGATIVE (Negative); SARS COV2 PCR INHOUSE NEGATIVE (Negative)
[2025-09-25 20:12] VITALS: BP 128/77; PULSE 84; RESP 18; TEMP 36.9; O2SAT 96
[2025-09-25 21:04] LABS: Troponin-I High Sensitivity < 2.7 ng/L (<3.5-35.0)
[2025-09-25 22:08] VITALS: BP 129/86; PULSE 77; RESP 16; TEMP 36.4; O2SAT 98
[2025-09-25 22:11] VITALS: BP 129/86; PULSE 77; RESP 16; TEMP 36.4; O2SAT 98
== END 2025-09-25 22:11 | disposition home or self-care (01) ==
PROVIDERS: Physician Assistant; Emergency Provider Emergency Medicine
DX: R00.2 Palpitations (principal); R07.9 Chest pain, unspecified; R21 Rash and other nonspecific skin eruption; R06.02 Shortness of breath; Z03.818 Encounter for observation for suspected exposure to other biological agents ruled out
CPT/HCPCS: 36415; 71046; 80048; 80076; 84484; 85025; 87637; 93005; 99283; 99285

== ENCOUNTER → 2025-09-25 16:29 | Outpatient (BNV) | payer OTHER, SELFPAY | PROVIDERS: Emergency Provider Emergency Medicine; Visit Provider Internal Medicine Cardiovascular Disease | DX: R07.9 Chest pain, unspecified (principal) | CPT/HCPCS: 93010 ==

== ENCOUNTER → 2025-09-25 16:36 | Outpatient (BNV) | payer OTHER, SELFPAY | PROVIDERS: Visit Provider Specialist | DX: R07.9 Chest pain, unspecified (principal); R06.02 Shortness of breath | CPT/HCPCS: 71046 ==